=== PATIENT | female | born 1950 | race Caucasian/White ===

== ENCOUNTER 2018-11-05 09:55 | Day surgery (SDC) | payer OTHER ==
[2018-10-31 12:58] VITALS: BMI 27.1
[2018-11-05] MEDS ORDERED: GABAPENTIN 300 MG CAPSULE (FP) PO STA (10:16)
[2018-11-05] MEDS ORDERED: oxyCODONE HCL 10 MG SUSTAINED ACTING TABLET PO STA (10:16)
[2018-11-05] MEDS ORDERED: LIDOCAINE 1%/EPI 1:100000 (20 ML MULTI DOSE VIAL) ONE (11:14)
[2018-11-05] MEDS ORDERED: methylPREDNISolone ACET (DEPO) 40 MG/1 ML VIAL ONE (11:14)
[2018-11-05] MEDS ORDERED: THROMBIN (RECOMBINANT) 5,000 UNIT VIAL TP ONE (11:15)
[2018-11-05] MEDS ORDERED: MIDAZOLAM HCL 2 MG/2 ML SINGLE DOSE VIAL ONE (11:21)
[2018-11-05] MEDS ORDERED: PROPOFOL 20 ML ONE ×3 (11:50)
[2018-11-05] MEDS ORDERED: fentaNYL CITRATE 250 MCG/5 ML VIAL ONE (11:50)
--- NOTE | 2018-11-05 11:55 | HP ---
History & Physical Update - History History: No Change - Physical Physical: No Change - Assessment Assessment: No Change - Plan Plan: No Change (Intial H&P is located in patient's paper chart. No new complaints or medictaions. Here today for elective L4/S1 laminectomy (c/o chronic LBP w/ RLE radiculopathy))
[2018-11-05] MEDS ORDERED: BUPIVACAINE HCL/PF 0.5% (5MG/ML) 10 ML VIAL ONE (11:57)
[2018-11-05] MEDS ORDERED: LIDOCAINE 1%/EPI 1:100000 (20 ML MULTI DOSE VIAL) INF ONE (12:20)
[2018-11-05] MEDS ORDERED: ceFAZolin SODIUM 1 GM VIAL ONE (12:24)
[2018-11-05] MEDS ORDERED: ePHEDrine SULFATE 50 MG/1 ML AMPULE ONE (12:40)
[2018-11-05] MEDS ORDERED: PHENYLEPHRINE HCL 10 MG/1 ML SINGLE DOSE VIAL ONE (12:40)
[2018-11-05] MEDS ORDERED: SODIUM CHLORIDE 0.9% P/F 10 ML VIAL IJ ONE (12:41)
[2018-11-05] MEDS ORDERED: methylPREDNISolone ACET (DEPO) 40 MG/1 ML VIAL IM ONE (13:10)
--- NOTE | 2018-11-05 13:38 | OP ---
Operative Note - Note: Operative Date: 11/05/18 Pre-Operative Diagnosis: Chronic LBP with RLE radiculopathy Operation: L4-S1 laminectomy (bilateral) Post-Operative Diagnosis: Same as Pre-op Surgeon: Carson Lion Mechanical Ordnance Assembler: Epifanio Herr Anesthesiologist/NATIONAL SALES TRAINER: Gary Murry Anesthesia: Spinal Specimens Removed: None. Estimated Blood Loss (mls): 20 Fluid Volume Replaced (mls): 900 Operative Report Dictated: Yes
--- NOTE | 2018-11-05 13:39 | SURG ---
Surgery Row Boss Hoeing Note Row Boss Hoeing: Epifanio Herr PA-C Date of Service: 11/05/18 Diagnosis: Chronic LBP w/ RLE radiculopathy Procedure: L4-S1 Laminectomy (bilateral) I was present for the entirety of the operative procedure. For further detail, please refer to operative report. Visit type - Case Type Case Type: Scheduled - New patient This patient is new to me today: Yes Date on this admission: 11/05/18
[2018-11-05] MEDS ORDERED: ONDANSETRON 4 MG/2 ML VIAL ONE (14:01)
[2018-11-05] MEDS ORDERED: oxyCODONE HCL 5 MG TABLET PO PRN ×2 (14:18)
[2018-11-05] MEDS ORDERED: ONDANSETRON 4 MG/2 ML VIAL IVPUSH PRN (14:18)
[2018-11-05] MEDS ORDERED: PROMETHAZINE HCL 25 MG/1 ML VIAL IVPUSH PRN (14:18)
[2018-11-05 15:12] VITALS: TEMP 98.2
[2018-11-05] MEDS ORDERED: oxyCODONE HCL 5 MG TABLET ONE (16:05)
--- NOTE | 2018-11-05 16:49 | OP ---
DATE OF OPERATION: 11/05/2018 PREOPERATIVE DIAGNOSIS: Spinal stenosis L4-L5, L5-S1. POSTOPERATIVE DIAGNOSIS: Spinal stenosis L4-L5, L5-S1. PROCEDURE PERFORMED: Laminectomy L4-L5, L5-S1. SURGEON: Carson Lion MD BACKUP SAWYER: CHIQUITA Camargo ESTIMATED BLOOD LOSS: 50 mL. INTRAVENOUS FLUIDS: Per anesthesia. ANESTHESIA: Spinal/TLIP block. COMPLICATIONS: There were none. DISPOSITION: Patient was brought to the PACU in stable condition. INDICATIONS FOR SURGERY: Patient is a 68-year-old female who has been suffering from pain from her back down her legs. X-rays and MRI were completed, which noted that she had spinal stenosis from L4 down to S1. She had gone through an exhaustive course of treatment for this, which included medications, physical therapy as well as injections. Unfortunately, pain continued to persist despite all this. At this point, risks, benefits, and alternatives were discussed, and the patient consented to surgery. DESCRIPTION OF PROCEDURE: Patient was brought to the operating room by anesthesia staff. After appropriate patient identification was performed, spinal anesthesia was given. TLIP block was also given. Patient was able to position herself prone onto the OR table with all areas and bony prominences well padded at this time. Two needles were placed into her back to hoang off the L4-S1 segments. X-ray was taken to confirm this was correct. Needle was removed, and 10 mL of lidocaine with epinephrine was injected into her back at this time. Her back was prepped and draped in a sterile manner. At this point, a time-out was completed. An incision was made from the top of L4 down to the bottom of S1. Dissection was carried down to the fascia. Fascia was split open at this time, and appropriate retractor was then placed in. A spinal needle was placed onto the L4 lamina to hoang off the L4-L5 level. X-ray was taken to confirm this was correct. Needle was removed, and the interspinous ligament at L4-L5, L5-S1 was removed. The spinous process of L5 was removed. A complete decompression was performed by removing both the lamina and the flavum from L4 down to S1 such that by the end of the procedure the L5 and S1 nerve roots appeared to be well decompressed. All bleeding was well controlled at this time. Steroids was placed over the nerve root. FloSeal was placed over that. The fascia was closed with a No. 1 Vicryl suture. The subcutaneous tissue was closed with 2-0 Vicryl suture. Skin was closed with 3-0 Monocryl suture. Dermabond was applied. Steri-Strips were applied. A sterile dressing was applied. Patient was placed supine on the OR bed and brought to the PACU in stable condition. Eula PONCE/[id number] MTDD
[2018-11-05 17:16] VITALS: BP 132/71; PULSE 71
== END 2018-11-05 17:18 | disposition home or self-care (01) ==
LOC: FASU 09:55
PROVIDERS: ATTEND Orthopaedic Surgery Orthopaedic Surgery of the Spine
PROC: 01NB0ZZ Release Lumbar Nerve, Open Approach (ICD-10-PCS; principal; 2018-11-05 12:29)
DX: M48.061 Spinal stenosis, lumbar region without neurogenic claudication (principal); M48.07 Spinal stenosis, lumbosacral region
CPT/HCPCS: 72100-TC-FY; 76000-TC-FY; 94760

== ENCOUNTER 2018-11-20 14:08 | Inpatient (IN) | payer OTHER ==
--- NOTE | 2018-11-20 14:45 | PDOC ---
History of Present Illness - General History Source: Patient Exam Limitations: No Limitations - History of Present Illness Initial Comments: 11/20/18 14:45 HPI: 68yo F PMH spinal stenosis s/p laminectomy November 05, patient was doing well until 4 days ago when her pain worsened and she began to have difficulty ambulating due to "legs feeling like jelly" and pain. She endorses inability to ambulate at the current time and complains of severe left buttock pain. Denies fevers, chills, CP, SOB, leg pain, numbness, tingling, urinary or fecal incontinence. All: PCN and sulfa Meds: per chart PMH: per cart PSH: per chart <Dereck Silvestre - Last Filed: 11/20/18 18:48> <Anna Avendaño - Last Filed: 11/20/18 22:25> - General Chief Complaint: Back Pain Stated Complaint: LOWER BACK PAIN Time Seen by Provider: 11/20/18 14:45 Past History - Travel Traveled outside of the country in the last 30 days: No Close contact w/someone who was outside of country & ill: No - Past Medical History Anemia: No Asthma: No Cancer: Yes (LEFT BREAST DX 2017) Cardiac Disorders: No CVA: No COPD: No CHF: No Dementia: No Diabetes: No GI Disorders: Yes (HX GASTRIC ULCER) Disorders: No HTN: Yes Hypercholesterolemia: No Liver Disease: Yes (FATTY LIVER- FUNCTION NORMAL) Seizures: No Thyroid Disease: No - Surgical History Abdominal Surgery: Yes (GASTRIC ULCER REPAIR- 2014) Appendectomy: No Cardiac Surgery: No Cholecystectomy: No Lung Surgery: No Neurologic Surgery: No Orthopedic Surgery: No - Psycho Social/Smoking Cessation Hx Smoking History: Never smoked Have you smoked in the past 12 months: No Hx Alcohol Use: No Drug/Substance Use Hx: No Substance Use Type: None Hx Substance Use Treatment: No <Dereck Silvestre - Last Filed: 11/20/18 18:48> <Anna Avendaño - Last Filed: 11/20/18 22:25> - Past Medical History Allergies/Adverse Reactions: Allergies Allergy/AdvReac Type Severity Reaction Status Date / Time amoxicillin Allergy Intermediate Rash Verified 11/20/18 15:01 Penicillins Allergy Intermediate Rash Verified 11/20/18 15:01 Sulfa (Sulfonamide Allergy Intermediate Rash Verified 11/20/18 15:01 Antibiotics) Home Medications: Ambulatory Orders Anastrozole [Arimidex -] 1 mg PO HS 10/31/18 Gabapentin 300 mg PO TID 10/31/18 Losartan Potassium 100 mg PO HS 10/31/18 Metoprolol Succinate [Toprol Xl] 25 mg PO HS 10/31/18 Triamterene/Hydrochlorothiazid [Triamterene-Hctz 37.5-25 mg Cp] 1 tab PO HS Review of Systems - Review of Systems Able to Perform ROS?: Yes Is the patient limited Tongan proficient: Yes Constitutional: No: Chills, Diaphoresis, Fever, Malaise, Night Sweats, Weakness , Unexplained wgt Loss HEENTM: No: Eye Pain, Double Vision, Nose Congestion, Throat Swelling Respiratory: No: Cough, Orthopnea, Shortness of Breath, Stridor, Wheezing Cardiac (ROS): No: Chest Pain, Edema, Irregular Heart Rate, Palpitations, Syncope, Chest Tightness ABD/GI: No: Constipated, Diarrhea, Nausea, Vomiting, Indigestion : No: Burning, Dysuria, Discharge, Hematuria, Incontinence, Pain Musculoskeletal: No: Back Pain, Gout, Muscle Pain, Muscle Weakness Integumentary: No: Erythema, Pruritus, Rash, Sweating Neurological: No: Headache, Numbness, Seizure, Tingling, Weakness Psychiatric: No: Emotional Problems, Mood Swings, Change in Appetite Hematologic/Lymphatic: No: Anemia, Easy Bleeding, Easy Bruising All Other Systems: Reviewed and Negative <Dereck Silvestre - Last Filed: 11/20/18 18:48> *Physical Exam - Physical Exam Comments: 11/20/18 15:23 Vitals reviewed, AFVSS Obese woman, laying in bed, NAD, uncomfortable NCAT, MMM, EOMI, normal morphologies RRR, nl s1/s2, no murmurs appreciated CTABL, normal WOB, no wheezes / rales / rhonchi Abd obese, soft, nontender Back with midline dressing and sutures from surgery, no surrounding erythema, swelling, warmth, crepitus, left glute tender to palpation, normal sensation in saddle region, normal sensation to light touch in bilateral LE, 4+ strength plantar flexion, unable to lift legs off bed 2/2 pain - moves well in plan of bed Alert and oriented <Dereck Silvestre - Last Filed: 11/20/18 18:48> - Vital Signs Last Vital Signs Temp Pulse Resp BP Pulse Ox 97.9 F 93 H 18 157/78 96 11/20/18 18:00 11/20/18 18:00 11/20/18 14:47 11/20/18 18:00 11/20/18 18:00 <Anna Avendaño - Last Filed: 11/20/18 22:25> ED Treatment Course - Medications Given in the ED: ED Medications Discontinued Medications Generic Name Dose Route Start Last Admin Trade Name Morgan PRN Reason Stop Dose Admin Diazepam 5 mg 11/20/18 17:25 11/20/18 17:37 Valium - PO 11/20/18 17:26 5 mg ONCE ONE Administration Ketorolac Tromethamine 30 mg 11/20/18 17:24 11/20/18 17:37 Toradol Injection - IM 11/20/18 17:25 30 mg ONCE ONE Administration <Anna Avendaño - Last Filed: 11/20/18 22:25> Medical Decision Making - Medical Decision Making 11/20/18 15:32 68yo F spinal stenosis s/p laminectomy November 05, patient was doing well until 4 days ago when her pain worsened and she began to have difficulty ambulating due to "legs feeling like jelly" and pain. Concerning for ?cord compression. Pt reports that surgeon sent her in for MRI. -MRI Lumbar spine 11/20/18 17:16 -Spoke with Dr. Lion, he agreed with MRI, suggested pain control if negative -Plan for f/u MRI read, then Toraol / Valium for pain and attempt ambulation -If patient unable to ambulate with adequate pain control, will admit 11/20/18 18:49 -Radiology preliminarily read of moderate fluid collection at L5/S1 measuring 3.5 x 1.1 x 0.8 -Awaiting official read, call placed to patient's orthopaedic surgeon for disposition <Dereck Silvestre - Last Filed: 11/20/18 18:48> Discharge <Dereck Silvestre - Last Filed: 11/20/18 18:48> - Discharge Information Problems reviewed: Yes - Admission Yes <Avendaño,Anna - Last Filed: 11/20/18 22:25> - Discharge Information Clinical Impression/Diagnosis: Back pain, S/P laminectomy with spinal fusion Condition: Guarded
--- NOTE | 2018-11-20 15:03 | PDOC ---
Attending Attestation - Resident Resident Name: KonradDereck - ED Attending Attestation I have performed the following: I have examined & evaluated the patient, The case was reviewed & discussed with the resident, I agree w/resident's findings & plan, Exceptions are as noted - HPI HPI: 11/20/18 15:06 Status post L4-L5 laminectomy 2 weeks ago. For the past 4 days progressive weakness of both lower extremities, now unable to ambulate. Sent in by surgeon requesting MRI. - Physicial Exam PE: 11/20/18 18:51 Patient appears to have weakness of both lower extremities, although sensation and movement are present. She denies bowel or bladder incontinence or retention , there is no saddle anesthesia. - Medical Decision Making 11/20/18 18:52 Assessment: MRI shows some fluid collection at the L5-S1 region as described by the radiologist, moderate, 3.5 x 1.1 x 0.8. Plan: Dr. Gibbs was paged to discuss the MRI results and further medical/ surgical management. Awaiting return call. Signed out to Dr. Sam 7 PM pending return call by surgeon.
[2018-11-20] MEDS ORDERED: KETOROLAC TROMETHAMINE 30 MG/1 ML VIAL IM ONE (17:24)
[2018-11-20] MEDS ORDERED: diazePAM 5 MG TABLET PO ONE (17:25)
[2018-11-20] MEDS ORDERED: KETOROLAC TROMETHAMINE 30 MG/1 ML VIAL ONE (17:29)
[2018-11-20] MEDS ORDERED: diazePAM 5 MG TABLET ONE (17:29)
[2018-11-20] MEDS ORDERED: DEXTROSE 5%-0.45% SALINE 1,000 ML IV SCH (21:00)
[2018-11-20] MEDS: ACETAMINOPHEN 1000 MG/100 ML VIAL (NON FORMULARY) IVPB PRN (21:26)
[2018-11-20] MEDS: ANASTROZOLE 1 MG TABLET PO SCH (21:28)
[2018-11-20] MEDS: metoPROLOL SUCCINATE 25 MG TAB.SR.24H (FP) PO SCH (21:28)
[2018-11-20] MEDS: GABAPENTIN 300 MG CAPSULE (FP) PO SCH (21:28)
[2018-11-20] MEDS: LOSARTAN POTASSIUM 50 MG TABLET (FP) PO SCH (21:30)
[2018-11-20] MEDS ORDERED: PATIENT'S OWN MEDICATION (NON-FORMULARY) (Losartan Potassium [Losartan Potassium] 100 MG) PO SCH (22:00)
[2018-11-20 22:46] LABS: HEMATOCRIT 29.5 % (32.4-45.2); MCH 33.2 pg (25.7-33.7); MCHC 33.9 g/dl (32.0-36.0); MEAN PLT VOLUME 6.9 fl (7.5-11.1); PLATELET COUNT 56 K/MM3 (134-434); RBC 3.01 M/mm3 (3.60-5.2); RDW 13.9 % (11.6-15.6); WHITE BLOOD COUNT 2.1 K/mm3 (4.0-10.8)
[2018-11-20 22:57] LABS: ALBUMIN 2.8 g/dl (3.4-5.0); BILIRUBIN,TOTAL 1.7 mg/dl (0.2-1); CALCIUM 8.5 mg/dl (8.5-10); CREATININE 0.7 mg/dl (0.55-1.3); MAGNESIUM 1.6 mg/dL (1.8-2.4); POTASSIUM 3.4 mmol/L (3.5-5.1); TOT PROT 5.2 g/dl (6.4-8.2)
[2018-11-20 23:06] VITALS: BMI 28.8
[2018-11-20 23:19] LABS: PLATELET ESTIMATE DECREASED
[2018-11-21] MEDS ORDERED: morphine CARPU-JECT 2 MG/1 ML DISP.SYRIN IM ONE (01:27)
[2018-11-21] MEDS ORDERED: MAGNESIUM SULF 50% (8.12 MEQ/2 ML-1 GM VIAL) IVPB ONE (02:17)
[2018-11-21] MEDS ORDERED: KCL 10 MEQ IVPB 10 MEQ/100 ML INFUS.BAG IVPB SCH (02:30)
[2018-11-21] MEDS: GABAPENTIN 300 MG CAPSULE (FP) PO SCH ×3 (06:00→21:24)
[2018-11-21] MEDS: TRIAMTERENE AND HCTZ - 37.5 MG/25 MG CAPSULE PO SCH ×2 (06:01→11:50)
[2018-11-21 08:05] LABS: CALCIUM 8.3 mg/dl (8.5-10); CREATININE 0.8 mg/dl (0.55-1.3); POTASSIUM 3.3 mmol/L (3.5-5.1)
[2018-11-21 08:30] LABS: INR 1.35 (0.82-1.09)
[2018-11-21] MEDS ORDERED: oxyCODONE HCL 5 MG TABLET PO PRN ×2 (09:02→09:03)
--- NOTE | 2018-11-21 09:02 | HP ---
"CHIEF COMPLAINT: Back pain PCP: Dr. Luis Muro, [facility] HISTORY OF PRESENT ILLNESS: 68 year-old female with a PMH significant for HTN, HLD, left breast cancer s/p lumpectomy 2018 on anastrazole, chronic thrombocytopenia, gout, nephrolithiasis , h/o perforated ulcer, chronic low back pain with RLE radiculopathy s/p L4-S1 bilateral laminectomy on 11/[address] Lion. Patient has been dependent on opioids for three years, was formally dismissed, in writing, from the pain management program at [facility] in August 2018. Shortly thereafter patient's sister reports patient went into withdrawal and felt very poorly. From 09/24 to 10/29, patient received prescriptions from an oral surgery practice for 98 opioid pills. Following her surgery on 11/05 she was prescribed additional opioids, valium, and tramadol (see I STOP search below). Patient states she has ingested all of these pills, she has nothing left at home. She thinks the pills ran out about a week ago which is when she states she developed left buttock pain, bilateral leg pain, difficulty walking, and falls. She describes the pain as shooting, sharp, unrelenting. Walking makes the pain worse, nothing makes it better. Patient denies fever, sweats, chills; denies nausea, vomiting, diarrhea. She denies tremors, anxiety, agitation, diaphoresis. 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 Chronic thrombocytopenia Gout Nephrolithiasis Endometrial hyperplasia Perforated ulcer (2013, in ICU x 2 weeks in [facility]) PAST SURGICAL HISTORY: Left breast lumpectomy (2018) D&C/Hysteroscopy (2018) Social History: retired from [employer] career; single, lives with sister, no children Smoking: never Alcohol: no Drugs: no Family history: sister with breast cancer; father 93 with HTN; mother 53 complications from gallbladder surgery; family h/o diabetes Allergies amoxicillin Allergy (Intermediate, Verified 11/20/18 15:01) Rash Penicillins Allergy (Intermediate, Verified 11/20/18 15:01) Rash Sulfa (Sulfonamide Antibiotics) Allergy (Intermediate, Verified 11/20/18 15:01) Rash HOME MEDICATIONS: Home Medications Medication Instructions Recorded Anastrozole [Arimidex -] 1 mg PO HS 10/31/18 Gabapentin 300 mg PO TID 10/31/18 Losartan Potassium 100 mg PO HS 10/31/18 Metoprolol Succinate [Toprol Xl] 25 mg PO HS 10/31/18 Triamterene/Hydrochlorothiazid 1 tab PO HS 10/31/18 [Triamterene-Hctz 37.5-25 mg Cp] REVIEW OF SYSTEMS CONSTITUTIONAL: Absent: fever, chills, diaphoresis, generalized weakness, malaise, loss of appetite, weight change HEENT: Absent: rhinorrhea, nasal congestion, throat pain, throat swelling, difficulty swallowing, mouth swelling, ear pain, eye pain, visual changes CARDIOVASCULAR: Absent: chest pain, syncope, palpitations, irregular heart rate, lightheadedness , peripheral edema RESPIRATORY: Absent: cough, shortness of breath, dyspnea with exertion, orthopnea, wheezing, stridor, hemoptysis GASTROINTESTINAL: Absent: abdominal pain, abdominal distension, nausea, vomiting, diarrhea, constipation, melena, hematochezia GENITOURINARY: Absent: dysuria, frequency, urgency, hesitancy, hematuria, flank pain, genital pain MUSCULOSKELETAL: +left buttock pain, bilateral leg pain Absent: myalgia, arthralgia, joint swelling, back pain, neck pain SKIN: Absent: rash, itching, pallor HEMATOLOGIC/IMMUNOLOGIC: Absent: easy bleeding, easy bruising, lymphadenopathy, frequent infections ENDOCRINE: Absent: unexplained weight gain, unexplained weight loss, heat intolerance, cold intolerance NEUROLOGIC: +unsteady gait, falls Absent: headache, focal weakness or paresthesias, dizziness, unsteady gait, seizure, mental status changes, bladder or bowel incontinence PSYCHIATRIC: Absent: anxiety, depression, suicidal or homicidal ideation, hallucinations. PHYSICAL EXAMINATION Vital Signs - 24 hr 11/20/18 11/20/18 11/20/18 14:47 18:00 20:12 Temperature 98.3 F 97.9 F 98.7 F Pulse Rate 78 95 H Pulse Rate [ 93 H Right] Respiratory 18 18 Rate Blood Pressure 146/76 167/78 Blood Pressure 157/78 [Right] O2 Sat by Pulse 100 96 Oximetry (%) 11/20/18 11/20/18 11/21/18 20:30 22:35 02:00 Temperature 98.7 F 98.6 F 98.1 F Pulse Rate 95 H 83 80 Pulse Rate [ Right] Respiratory 18 18 18 Rate Blood Pressure 167/78 141/61 145/61 Blood Pressure [Right] O2 Sat by Pulse 96 93 L 96 Oximetry (%) 11/21/18 11/21/18 11/21/18 06:00 08:06 08:58 Temperature 97.6 F 97.8 F Pulse Rate 79 74 Pulse Rate [ Right] Respiratory 18 18 Rate Blood Pressure 147/64 139/74 Blood Pressure [Right] O2 Sat by Pulse 96 96 94 L Oximetry (%) GENERAL: Awake, alert, and fully oriented, in no acute distress. HEAD: Normal with no signs of trauma. EYES: Pupils equal, round and reactive to light, extraocular movements intact, sclera anicteric, conjunctiva clear. No lid lag. LUNGS: Breath sounds equal, clear to auscultation bilaterally. No wheezes, and no crackles. No accessory muscle use. HEART: Regular rate and rhythm, S1 and S2 ABDOMEN: Soft, nontender, not distended MUSCULOSKELETAL: 5/5 sensory and motor in b/l LE; can SLR to 20 degrees bilaterally restricted due to report of pain radiating into both hips UPPER EXTREMITIES: 2+ pulses, warm, well-perfused. No cyanosis. No clubbing. No peripheral edema. LOWER EXTREMITIES: 2+ pulses, warm, well-perfused. No calf tenderness. No peripheral edema. NEUROLOGICAL: Cranial nerves II-XII intact. Normal speech. SKIN: Warm, dry, normal turgor; surgical wound visualized: steri strips dry, suture line below appears intact, no bleeding, no exudate; mild ecchymosis extending bilaterally, no fluctuance, not tender Laboratory Results - last 24 hr 11/20/18 11/20/18 11/20/18 22:00 22:00 22:00 WBC 2.1 L RBC 3.01 L Hgb 10.0 L Hct 29.5 L MCV 98.0 H MCH 33.2 MCHC 33.9 RDW 13.9 Plt Count 56 L MPV 6.9 L Absolute Neuts (auto) 1.4 Neutrophils % No Result Required. Neutrophils % (Manual) 70.0 Lymphocytes % No Result Required. Lymphocytes % (Manual) 20.0 Monocytes % (Manual) 6 Eosinophils % (Manual) 4.0 Platelet Estimate Decreased PT with INR INR Sodium 140 Potassium 3.4 L Chloride 111 H Carbon Dioxide 27 Anion Gap 2 L BUN 12.0 Creatinine 0.7 Est GFR (CKD-EPI)AfAm 104.64 Est GFR (CKD-EPI)NonAf 90.29 Random Glucose 83 Calcium 8.5 Magnesium 1.6 L Total Bilirubin 1.7 H AST 34 ALT 15 Alkaline Phosphatase 101 Total Protein 5.2 L Albumin 2.8 L Blood Type O NEGATIVE Antibody Screen Negative 11/21/18 11/21/18 07:05 08:05 WBC RBC Hgb Hct MCV MCH MCHC RDW Plt Count MPV Absolute Neuts (auto) Neutrophils % Neutrophils % (Manual) Lymphocytes % Lymphocytes % (Manual) Monocytes % (Manual) Eosinophils % (Manual) Platelet Estimate PT with INR 15.0 H INR 1.35 H Sodium 139 Potassium 3.3 L Chloride 110 H Carbon Dioxide 25 Anion Gap 4 L BUN 14.0 Creatinine 0.8 Est GFR (CKD-EPI)AfAm 89.04 Est GFR (CKD-EPI)NonAf 76.83 Random Glucose 91 Calcium 8.3 L Magnesium 2.0 Total Bilirubin AST ALT Alkaline Phosphatase Total Protein Albumin Blood Type Antibody Screen ASSESSMENT/PLAN 68 year-old female with a PMH significant for HTN, HLD, left breast cancer s/p lumpectomy 2018 on anastrazole, chronic thrombocytopenia, gout, nephrolithiasis , h/o perforated ulcer, chronic low back pain with RLE radiculopathy s/p L4-S1 bilateral laminectomy on 11/[address] Lion. Patient admitted for bilateral leg pain and falls. s/p L4-S1 bilateral laminectomy on 11/05/18 --11/20 MRI LS: 3 x 1.3 x 1cm ellipitical-shaped fluid structure within the central canal posteriorly at L5 and S1 levels with resultant ventral displacement and extrinisic indentation upon the traversing thecal sac --discussed with surgical team, considering intervention v. conservative management --pain initially treated with Tylenol, but concern for liver dysfunction; cannot give NSAIDS due to thrombocytopenia; cannot give opioids due to dependency; offered to start patient on methadone tapering protocol but she refused; consult placed for Dr. Mckay, detox/behavioral health --continue gabapentin, lidocaine patch Elevated bilirubin Dilated common bile duct Splenomegaly --patient has been told she has cirrhosis although not reflected in [facility] pre-op records (3 different doctors) as a current diagnosis --11/20 MRI shows dilated CBD 8mm although patient denies symptoms of gallbladder disease --LFTs, ammonia, acetaminophen levels now --US abdomen Chronic thrombocytopenia Leukopenia --has been under care of deputy sheriff chief Dr. Oreilly, pre-op platelets 72k on ; now 56k; no signs of bleeding --discussed with surgical team Hypertension --continue metoprolol, losartan --hold HCTZ/triamterine due to hypokalemia Hyperlipidemia --not on statin therapy Hypokalemia --replete Breast cancer --continue anastrazole Opioid dependency --consult pending --offered to start patient on methadone protocol, she refused FEN Fluids: NS@75mL/hr Electrolytes: replete as indicated Nutrition: regular diet DVT prophylaxis: SCDs, oob, ambulation Physical therapy Dispo: continues to require inpatient care. Full code. I-STOP Search Terms: Ruby Arcos, 1950 Search Date: 11/21/2018 02:56:52 PM The Drug Utilization Report below displays all of the controlled substance prescriptions, if any, that your patient has filled in the last twelve months. The information displayed on this report is compiled from pharmacy submissions to the Department, and accurately reflects the information as submitted by the pharmacies. This report was requested by: Valarie Ramírez | Reference #: [id number] Others' Prescriptions Patient Name: Ruby Arcos Date: 1950 Address: [address] [place] [address] Sex: Female Rx Written Rx Dispensed Drug Quantity Days Supply Prescriber Name 11/09/2018 11/11/2018 tramadol hcl 50 mg tablet 60 10 Carson Lion D, MD 11/05/2018 11/05/2018 oxycodone hcl 5 mg tablet 28 7 Epifanio Herr 11/05/2018 11/05/2018 diazepam 2 mg tablet 24 8 Epifanio Herr 10/29/2018 10/29/2018 oxycodone-acetaminophen 5-325 mg tablet 8 2 Kendell LoweMD MIKO) 10/22/2018 10/23/2018 hydrocodone-acetaminophen 5-325 mg tablet 20 5 Kendell Lowe (MD MIKO) 10/18/2018 10/18/2018 oxycodone-acetaminophen 2.5-325 mg tablet 20 5 Kendell Lowe (MD MIKO) 10/12/2018 10/13/2018 acetaminophen-cod #3 tablet 12 3 Kendell Lowe (MD MIKO ) 10/11/2018 10/11/2018 acetaminophen-cod #3 tablet 8 2 Kendell Lowe (MD MIKO) 10/05/2018 10/05/2018 acetaminophen-cod #3 tablet 12 2 Kendell Lowe (MD MIKO ) 09/24/2018 09/24/2018 hydrocodone-acetaminophen 7.5-325 mg tablet 18 3 Gurpreet Kirk 08/01/2018 08/03/2018 oxycodone hcl 15 mg tablet 90 30 Concan, Jennifer, N 07/06/2018 07/06/2018 oxycodone hcl 15 mg tablet 90 30 Star, Jennifer, N 05/24/2018 06/07/2018 oxycodone hcl 15 mg tablet 90 30 Star, Jennifer, N 05/07/2018 05/09/2018 oxycodone hcl 15 mg tablet 60 30 Marilyn Lan M, MSN, GRINDING MACHINE OPERATOR PORTABLE-Bc, 03/29/2018 03/31/2018 oxycodone hcl 15 mg tablet 120 30 Marilyn Lan M, MSN, GRINDING MACHINE OPERATOR PORTABLE-Bc, Patient Name: Ruby Arcos Date: 1950 Address: [address] [place] [address] Sex: Female Rx Written Rx Dispensed Drug Quantity Days Supply Prescriber Name 02/27/2018 03/06/2018 oxycodone hcl 15 mg tablet 120 30 Marilyn Lan M, MSN, GRINDING MACHINE OPERATOR [employer]ABLE-[employer]c, 01/26/2018 02/24/2018 oxycodone hcl 15 mg tablet 120 30 Marilyn Lan M, MSN, GRINDING MACHINE OPERATOR PORTABLE-[employer]c, 01/05/2018 01/05/2018 oxycodone hcl 15 mg tablet 120 30 Concan, Jennifer, N 12/07/2017 12/07/2017 oxycodone hcl 15 mg tablet 90 30 Star, Jennifer, N Visit type - Emergency Visit Emergency Visit: Yes ED Registration Date: 11/20/18 Care time: The patient presented to the Emergency Department on the above date and was hospitalized for further evaluation of their emergent condition. - New Patient This patient is new to me today: Yes Date on this admission: 11/21/18 - Critical Care Critical Care patient: No"
[2018-11-21] MEDS ORDERED: PT OWN MED DRAWER 7, Y5N ONE (09:23)
[2018-11-21] MEDS: ACETAMINOPHEN 1000 MG/100 ML VIAL (NON FORMULARY) IVPB PRN (09:30)
[2018-11-21] MEDS ORDERED: TRIAMTERENE AND HCTZ - 37.5 MG/25 MG CAPSULE PO SCH (09:30)
--- NOTE | 2018-11-21 10:56 | EKG ---
Test Reason : Blood Pressure : / mmHG Vent. Rate : 094 BPM Atrial Rate : 094 BPM P-R Int : 164 ms QRS Dur : 080 ms QT Int : 372 ms P-R-T Axes : 049 049 039 degrees QTc Int : 465 ms NORMAL SINUS RHYTHM POSSIBLE LEFT ATRIAL ENLARGEMENT BORDERLINE ECG NO PREVIOUS ECGS AVAILABLE Confirmed by DARWIN SMITH, TRINITY ([id number]) on 11/21/2018 10:55:57 AM Referred By: DR CARPIO Confirmed By:TRINITY GRANADOS MD
--- NOTE | 2018-11-21 16:16 | CONSULT ---
- Consultation REQUESTING PROVIDER: CONSULT REQUEST: We have been asked to surgically evaluate this patient for back pain/weakness. PCP:Valarie Ramírez HISTORY OF PRESENT ILLNESS: The patient is a 68 yo female who is s/p laminectomy L4-S1 on 11/05/2018. She went home after her surgery and was recovering ok for approximately 1 week then she developed severe back pain. She was unable to see Dr. Lion in his office for a follow-up because of the pain. Her pain is mostly in her back/buttock region. She denies any numbness or tingling to her LE. She does feel weak but mostly from the pain. No headaches, fevers or chills. No difficulty with urination/incontinence. No difficulties with bowel incontinence and had a BM yesterday. No nausea or emesis. PMHx: HTN, breast cancer, thrombocytopenis PSHx: exp lap for perforated stomach ulcer. s/p lami L4-S1 on 11/05 Home Medications Medication Instructions Recorded Anastrozole [Arimidex -] 1 mg PO HS 10/31/18 Gabapentin 300 mg PO TID 10/31/18 Losartan Potassium 100 mg PO HS 10/31/18 Metoprolol Succinate [Toprol Xl] 25 mg PO HS 10/31/18 Triamterene/Hydrochlorothiazid 1 tab PO HS 10/31/18 [Triamterene-Hctz 37.5-25 mg Cp] Allergies Allergy/AdvReac Type Severity Reaction Status Date / Time amoxicillin Allergy Intermediate Rash Verified 11/20/18 15:01 Penicillins Allergy Intermediate Rash Verified 11/20/18 15:01 Sulfa (Sulfonamide Allergy Intermediate Rash Verified 11/20/18 15:01 Antibiotics) REVIEW OF SYSTEMS: CONSTITUTIONAL: Absent: fever, chills CARDIOVASCULAR: Absent: chest pain, syncope, palpitations RESPIRATORY: Absent: cough, shortness of breath GASTROINTESTINAL: Absent: abdominal pain, abdominal distension, nausea, vomiting GENITOURINARY: Absent: dysuria, hematuria, incontinence HEMATOLOGIC/IMMUNOLOGIC: Absent: no easy bleeding, easy bruising NEUROLOGIC: Absent: headache, paresthesias, absent bowel or bladder incontinence Present: unsteady gait, weakness to LE PHYSICAL EXAM: GENERAL: Awake, alert, in no acute distress. LUNGS: Clear to auscultation bilat anteriorly. HEART: Regular rate and rhythm. No murmurs ABDOMEN: Soft, nontender, not distended, no guarding, no rebound, no masses. Rectum: good rectal tone, small amount hard stool in rectum. no masses. Back: incision c/d/i. No drainage noted or erythema. Mild ecchymosis noted near inferior/lateral aspect. LOWER EXTREMITIES: 2+ pulses, warm, well-perfused. No calf tenderness. No peripheral edema. NEUROLOGICAL: Normal speech, gait not observed. 5/5 dorsi/plantar flexion/EHL b/ l. 4/5 RLE quad strength/straight leg rasie. LLE 3/5 quad strength/ straight leg raise. PSYCH: Cooperative. Good eye contact. Appropriate mood flat. Vital Signs Temperature 97.7 F 11/21/18 14:00 Pulse Rate 73 11/21/18 14:00 Respiratory Rate 18 11/21/18 14:00 Blood Pressure 153/66 11/21/18 14:00 O2 Sat by Pulse Oximetry (%) 98 11/21/18 14:00 Lab Results WBC 2.1 K/mm3 (4.0-10.8) L 11/20/18 22:00 RBC 3.01 M/mm3 (3.60-5.2) L 11/20/18 22:00 Hgb 10.0 GM/dl (10.7-15.3) L 11/20/18 22:00 Hct 29.5 % (32.4-45.2) L 11/20/18 22:00 MCV 98.0 fl (80-96) H 11/20/18 22:00 MCHC 33.9 g/dl (32.0-36.0) 11/20/18 22:00 RDW 13.9 % (11.6-15.6) 11/20/18 22:00 Plt Count 56 K/MM3 (134-434) L 11/20/18 22:00 Sodium 139 mmol/L (136-145) 11/21/18 07:05 Potassium 3.3 mmol/L (3.5-5.1) L 11/21/18 07:05 Chloride 110 mmol/L (98-107) H 11/21/18 07:05 Carbon Dioxide 25 mmol/L (21-32) 11/21/18 07:05 Anion Gap 4 MMOL/L (8-16) L 10/09/19 07:05 BUN 14.0 mg/dl (7-18) 11/21/18 07:05 Creatinine 0.8 mg/dl (0.55-1.3) 11/21/18 07:05 Random Glucose 91 mg/dl (74-106) 11/21/18 07:05 Calcium 8.3 mg/dl (8.5-10) L 11/21/18 07:05 Blood Type O NEGATIVE 11/21/18 08:05 Antibody Screen Negative 11/21/18 08:05 INR 1.35 (0.82-1.09) H 11/21/18 08:05 report from pre-admission testing 3bc 3.2 plts 72 MRI: 3 x1 x1 cm with fluid collection in central cavan posteriorly L5-S1. A/P: 68 yo female s/p Laminecotmy of L5-S1 with pain and small collection most likely hematoma. Pt with known thrombocytopenia. D/w Dr. Lion and will continue to monitor, currently pt with no neurological symptoms. Her weakness appears to be related to her pain issues. Hold on all motrin/toradol medications Hold tylenol and add lidocaine patch. Hold on narcotics, she has a history of opoid abuse. Gabapentin for pain. Case D/w Dr. Lion, will monitor and treat for pain, physical therapy treatment. At this time no acute need for surgical intervention.
[2018-11-21] MEDS ORDERED: POTASSIUM CHLORIDE TABS 20 MEQ TABLET.ER (FP) PO ONE (16:27)
[2018-11-21] MEDS ORDERED: SODIUM CHLORIDE 1,000 ML IV SCH (16:30)
[2018-11-21] MEDS: LIDOCAINE 5% TOPICAL PATCH TP SCH (17:31)
[2018-11-21 17:45] LABS: ALBUMIN 3.1 g/dl (3.4-5.0); BILIRUBIN,DIRECT 0.5 mg/dL (0.0-0.2); BILIRUBIN,TOTAL 2.1 mg/dl (0.2-1); TOT PROT 5.7 g/dl (6.4-8.2)
[2018-11-21] MEDS: LOSARTAN POTASSIUM 50 MG TABLET (FP) PO SCH (21:24)
[2018-11-21] MEDS: metoPROLOL SUCCINATE 25 MG TAB.SR.24H (FP) PO SCH (21:25)
[2018-11-21] MEDS: ANASTROZOLE 1 MG TABLET PO SCH (21:25)
[2018-11-21] MEDS: LIDOCAINE PATCH REMOVAL MC SCH (21:25)
[2018-11-21] MEDS: MUPIROCIN CA 2% TOPICAL CREAM 15 GM TUBE TP SCH (21:25)
[2018-11-22] MEDS: GABAPENTIN 300 MG CAPSULE (FP) PO SCH ×3 (06:38→21:40)
[2018-11-22 08:02] LABS: BASO % 0.2 % (0-2.0); EOS % 2.3 % (0-4.5); HEMATOCRIT 29.4 % (32.4-45.2); HEMOGLOBIN 9.9 GM/dl (10.7-15.3); LYMPH % 15.9 % (8-40); MCH 33.1 pg (25.7-33.7); MCHC 33.6 g/dl (32.0-36.0); MEAN CELL VOLUME 98.5 fl (80-96); MEAN PLT VOLUME 7.4 fl (7.5-11.1); MONO % 10.5 % (3.8-10.2); NEUT % 71.1 % (42.8-82.8); PLATELET COUNT 60 K/MM3 (134-434); RBC 2.98 M/mm3 (3.60-5.2); WHITE BLOOD COUNT 2.8 K/mm3 (4.0-10.8)
[2018-11-22 08:42] LABS: ALBUMIN 2.7 g/dl (3.4-5.0); BILIRUBIN,DIRECT 0.5 mg/dL (0.0-0.2); BILIRUBIN,TOTAL 1.8 mg/dl (0.2-1); CALCIUM 8.6 mg/dl (8.5-10); CREATININE 0.8 mg/dl (0.55-1.3); MAGNESIUM 1.6 mg/dL (1.8-2.4); POTASSIUM 3.8 mmol/L (3.5-5.1); TOT PROT 5.1 g/dl (6.4-8.2)
[2018-11-22] MEDS ORDERED: MAGNESIUM SULF 50% (8.12 MEQ/2 ML-1 GM VIAL) IVPB ONE (09:21)
[2018-11-22] MEDS ORDERED: MAGNESIUM SULFATE IN WATER 2 GM/50 ML IVPB IVPB ONE (09:45)
[2018-11-22] MEDS: MUPIROCIN CA 2% TOPICAL CREAM 15 GM TUBE TP SCH ×2 (10:30→21:39)
[2018-11-22] MEDS: LIDOCAINE 5% TOPICAL PATCH TP SCH (10:46)
--- NOTE | 2018-11-22 11:46 | PN ---
Progress Note (short form) - Note Progress Note: Patient well known to me On Monday 11/20 patient called stated that she was in pain and could not get out of bed. Patient was advised to come to the ER In the ER MRI was taken which noted a seroma Neurologically patient is intact Patient with known dependency issues Pain management is complicated by her cirrhosis and dependency issues Will attempt safe pain management as well as rehab placement
--- NOTE | 2018-11-22 11:59 | PN ---
[facility] Progress Note (SOAP) Subjective: 68 year-old female referred for chronic pain , pt states has had back pain x many years , was in pain management program w/ rx for Oxycodone which pt states did not help , stopped taking meds , then had dental procedure and had rx for meds , s/p lumbar spine surgery 11/05/18 , d/c to home , states had several falls at home and pain in LB was excruciating , s/p fall @ home , brought by EMS as she states she could not get up from the floor. Pt c/o 11/22 pain in low back and bilateral buttocks, radiating to the outer thighs bilaterally , with difficulty standing, and walking , has been using a walker while at the hospital states has difficulty with transfers to / from bed and turning while in bed , was at MRI a few minutes ago and could not tolerate lying on the flat surface and in the cold , requested to be brought back to the room , MRI machine not working and MRI was not done today . Pt states opiates did not help w/ pain , declined Lidoderm patch and Gabapentin . PMHx : HTN, HLD, left breast cancer s/p lumpectomy 2018 currently on anastrazole, chronic thrombocytopenia, gout, nephrolithiasis, h/o perforated ulcer, chronic low back pain with RLE radiculopathy s/p L4-S1 bilateral laminectomy on 11/05 Active Medications Anastrozole (Arimidex -) [address] [facility] Last Admin: 11/21/18 21:25 Dose: 1 mg Gabapentin (Neurontin -) 300 mg PO TID [facility] Last Admin: 11/22/18 06:38 Dose: Not Given Sodium Chloride (Normal Saline -) 1,000 mls @ 75 mls/hr IV ASDIR [facility] Last Admin: 11/21/18 16:32 Dose: 75 mls/hr Lidocaine (Lidoderm Patch -) 1 patch TP DAILY [facility] Last Admin: 11/22/18 10:46 Dose: Not Given Losartan Potassium (Cozaar -) [address] [facility] Last Admin: 11/21/18 21:24 Dose: 100 mg Metoprolol Succinate (Toprol Xl -) [address] [facility] Last Admin: 11/21/18 21:25 Dose: 25 mg Miscellaneous (Lidoderm Patch Removal) 1 each MC DAILY@2200 [facility] Last Admin: 11/21/18 21:25 Dose: Not Given Mupirocin (Bactroban 2% Cream -) 1 applic TP BID [facility] Last Admin: 11/22/18 10:30 Dose: 1 applic Objective: Patient Name: Ruby Arcos Date: 1950 Address: [address] [place] [address] Sex: Female Rx Written Rx Dispensed Drug Quantity Days Supply Prescriber Name 11/09/2018 11/11/2018 tramadol hcl 50 mg tablet 60 10 Carson Lion D, MD 11/05/2018 11/05/2018 oxycodone hcl 5 mg tablet 28 7 Epifanio Herr 11/05/2018 11/05/2018 diazepam 2 mg tablet 24 8 Epifanio Herr 10/29/2018 10/29/2018 oxycodone-acetaminophen 5-325 mg tablet 8 2 Kendell Lowe (MD MIKO) 10/22/2018 10/23/2018 hydrocodone-acetaminophen 5-325 mg tablet 20 5 Kendell Lowe (MD MIKO) 10/18/2018 10/18/2018 oxycodone-acetaminophen 2.5-325 mg tablet 20 5 Kendell Lowe (MD MIKO) 10/12/2018 10/13/2018 acetaminophen-cod #3 tablet 12 3 Kendell Lowe (MD MIKO ) 10/11/2018 10/11/2018 acetaminophen-cod #3 tablet 8 2 Kendell Lowe (MD MIKO) 10/05/2018 10/05/2018 acetaminophen-cod #3 tablet 12 2 Kendell Lowe (MD MIKO ) 09/24/2018 09/24/2018 hydrocodone-acetaminophen 7.5-325 mg tablet 18 3 Gurprete Kirk 08/01/2018 08/03/2018 oxycodone hcl 15 mg tablet 90 30 Ladysmith, Jennifer, N 07/06/2018 07/06/2018 oxycodone hcl 15 mg tablet 90 30 Star, Jennifer, N 05/24/2018 06/07/2018 oxycodone hcl 15 mg tablet 90 30 Ladysmith, Jennifer, N 05/07/2018 05/09/2018 oxycodone hcl 15 mg tablet 60 30 Marilyn Lan M, MSN, [facility]-, 03/29/2018 03/31/2018 oxycodone hcl 15 mg tablet 120 30 Marilyn Lan M, MSN, [employer], Patient Name: Ruby Arcos Date: 1950 Address: [address] [place] [address] Sex: Female Rx Written Rx Dispensed Drug Quantity Days Supply Prescriber Name 02/27/2018 03/06/2018 oxycodone hcl 15 mg tablet 120 30 Marilyn Lan M, MSN, [employer], 01/26/2018 02/24/2018 oxycodone hcl 15 mg tablet 120 30 Marilyn Lan M, MSN, [employer], 01/05/2018 01/05/2018 oxycodone hcl 15 mg tablet 120 30 Star, Jennifer, N 12/07/2017 12/07/2017 oxycodone hcl 15 mg tablet 90 30 Star, Jennifer, N MRI some fluid collection at the L5-S1 region as described by the radiologist, moderate, 3.5 x 1.1 x 0.8. CBC, BMP 11/22/18 07:00 11/22/18 07:00 Vital Signs - 24 hr 11/21/18 11/21/18 11/21/18 14:00 18:00 20:14 Temperature 97.7 F 97.9 F Pulse Rate 73 80 Respiratory 18 16 Rate Blood Pressure 153/66 155/77 O2 Sat by Pulse 98 98 98 Oximetry (%) 11/21/18 11/22/18 11/22/18 22:00 01:34 06:00 Temperature 98.0 F 98.1 F 98.6 F Pulse Rate 78 82 79 Respiratory 19 18 18 Rate Blood Pressure 151/68 141/58 L 140/56 L O2 Sat by Pulse 98 94 L 94 L Oximetry (%) 11/22/18 10:00 Temperature 98.4 F Pulse Rate 84 Respiratory 20 Rate Blood Pressure 145/63 O2 Sat by Pulse Oximetry (%) Abnormal Lab Results 11/21/18 11/22/18 11/22/18 17:10 07:00 07:00 WBC 2.8 L RBC 2.98 L Hgb 9.9 L Hct 29.4 L MCV 98.5 H Plt Count 60 L MPV 7.4 L Monocytes % 10.5 H Chloride 113 H Anion Gap 5 L Magnesium 1.6 L Total Bilirubin 2.1 H 1.8 H Direct Bilirubin 0.5 H 0.5 H AST 39 H Total Protein 5.7 L 5.1 L Albumin 3.1 L 2.7 L wnwd , resting in chair comfortably , L-spine midline surgical scar c/d/i w/ steri-strips , moderate tenderness to palpation . Neuro : AAO x 3 , strength jhoan LE 5/5 sensory intact to light touch 11/22/18 15:17 Assessment: Lumbar radiculopathy s/p s/p L4-S1 bilateral laminectomy on 11/05/18 w/ new MRI findings of seroma L5-S1 . Plan: recommend Lyrica 50 mg tid , suggest physical therapy evaluation for ambulation and ability to do ADLs , consideration for home PT or snf rehabilitation .
--- NOTE | 2018-11-22 18:12 | PN ---
Physical Exam: SUBJECTIVE: Patient seen and examined sitting on edge of bed. Lenghty discussion about experience with pain management program. Had a good conversation today with Dr. Corral. Is interested in pursuing outpatient addiction treatment. OBJECTIVE: Vital Signs Period Temp Pulse Resp BP Sys/Rock Pulse Ox Last 24 Hr 98.0 F-98.7 F 76-84 16-20 140-151/56-68 94-98 GENERAL: Awake, alert, and fully oriented, in no acute distress. LUNGS: Breath sounds equal, clear to auscultation bilaterally. No wheezes, and no crackles. No accessory muscle use. HEART: Regular rate and rhythm, S1 and S2 ABDOMEN: Soft, nontender, not distended MUSCULOSKELETAL: 5/5 sensory and motor in b/l LE; can SLR to 20 degrees bilaterally restricted due to report of pain radiating into both hips UPPER EXTREMITIES: 2+ pulses, warm, well-perfused. No cyanosis. No clubbing. No peripheral edema. LOWER EXTREMITIES: 2+ pulses, warm, well-perfused. No calf tenderness. No peripheral edema. NEUROLOGICAL: Cranial nerves II-XII intact. Normal speech. SKIN: Warm, dry, normal turgor; surgical wound not visualized: steri strips Laboratory Results - last 24 hr 11/21/18 11/21/18 11/22/18 17:10 17:30 07:00 WBC 2.8 L RBC 2.98 L Hgb 9.9 L Hct 29.4 L MCV 98.5 H MCH 33.1 MCHC 33.6 RDW 14.0 Plt Count 60 L MPV 7.4 L Absolute Neuts (auto) 2.0 Neutrophils % 71.1 Lymphocytes % 15.9 Monocytes % 10.5 H Eosinophils % 2.3 Basophils % 0.2 Sodium Potassium Chloride Carbon Dioxide Anion Gap BUN Creatinine Est GFR (CKD-EPI)AfAm Est GFR (CKD-EPI)NonAf Random Glucose Calcium Magnesium Total Bilirubin Direct Bilirubin AST ALT Alkaline Phosphatase Ammonia 18.20 Total Protein Albumin Acetaminophen 6.0 11/22/18 07:00 WBC RBC Hgb Hct MCV MCH MCHC RDW Plt Count MPV Absolute Neuts (auto) Neutrophils % Lymphocytes % Monocytes % Eosinophils % Basophils % Sodium 141 Potassium 3.8 Chloride 113 H Carbon Dioxide 23 Anion Gap 5 L BUN 12.0 Creatinine 0.8 Est GFR (CKD-EPI)AfAm 89.04 Est GFR (CKD-EPI)NonAf 76.83 Random Glucose 93 Calcium 8.6 Magnesium 1.6 L Total Bilirubin 1.8 H Direct Bilirubin 0.5 H AST 34 ALT 15 Alkaline Phosphatase 99 D Ammonia Total Protein 5.1 L Albumin 2.7 L Acetaminophen Active Medications Generic Name Dose Route Start Last Admin Trade Name Freq PRN Reason Stop Dose Admin Anastrozole 1 mg 11/20/18 22:00 11/21/18 21:25 Arimidex - PO 1 mg HS CARLOTA Administration Gabapentin 300 mg 11/20/18 22:00 11/22/18 15:40 Neurontin - PO Not Given TID CARLOTA Sodium Chloride 1,000 mls @ 75 mls/hr 11/21/18 16:30 11/21/18 16:32 Normal Saline - IV 75 mls/hr ASDIR CARLOTA Administration Lidocaine 1 patch 11/21/18 17:00 11/22/18 10:46 Lidoderm Patch - TP Not Given DAILY CARLOTA Losartan Potassium 100 mg 11/20/18 22:00 11/21/18 21:24 Cozaar - PO 100 mg HS CARLOTA Administration Metoprolol Succinate 25 mg 11/20/18 22:00 11/21/18 21:25 Toprol Xl - PO 25 mg HS CARLOTA Administration Miscellaneous 1 each 11/21/18 22:00 11/21/18 21:25 Lidoderm Patch Removal MC Not Given DAILY@2200 CARLOTA Mupirocin 1 applic 11/21/18 22:00 11/22/18 10:30 Bactroban 2% Cream - TP 1 applic BID CARLOTA Administration ASSESSMENT/PLAN: 68 year-old female with a PMH significant for HTN, HLD, left breast cancer s/p lumpectomy 2018 on anastrazole, chronic thrombocytopenia, gout, nephrolithiasis , h/o perforated ulcer, chronic low back pain with RLE radiculopathy s/p L4-S1 bilateral laminectomy on 11/[address] Lion. Patient admitted for bilateral leg pain and falls. s/p L4-S1 bilateral laminectomy on 11/05/18 --11/20 MRI LS: 3 x 1.3 x 1cm ellipitical-shaped fluid structure within the central canal posteriorly at L5 and S1 levels with resultant ventral displacement and extrinisic indentation upon the traversing thecal sac --discussed with surgical team, no surgical intervention Pain management Opioid dependency --pain initially treated with Tylenol, but concern for liver dysfunction; cannot give NSAIDS due to thrombocytopenia; cannot give opioids due to dependency --seen and evaluated by Dr. Mckay detox/behavioral health, recommends starting Lyrica; discussed with patient who is uncertain, wants to think about it; also potential interaction with gabapentin --continue gabapentin for now Elevated bilirubin Dilated common bile duct Splenomegaly --patient has been told she has cirrhosis although not reflected in [facility] pre-op records (3 different doctors) as a current diagnosis --11/20 MRI shows dilated CBD 8mm although patient denies symptoms of gallbladder disease --11/21 US abd: suspected dilitation of intrahepatic duct biliary tree --11/22 MRCP: done, pending dictation Chronic thrombocytopenia Leukopenia --has been under care of adjunct lecturer Dr. Oreilly, pre-op platelets 72k on ; now 60k; no signs of bleeding Hypertension --continue metoprolol, losartan --hold HCTZ/triamterine due to hypokalemia Hyperlipidemia --not on statin therapy Hypomagnesemia --replete Breast cancer --continue anastrazole FEN Fluids: PO intake adequate Electrolytes: replete as indicated Nutrition: regular diet DVT prophylaxis: SCDs, oob, ambulation Physical therapy Dispo: continues to require inpatient care. Full code. Visit type - Emergency Visit Emergency Visit: Yes ED Registration Date: 11/20/18 Care time: The patient presented to the Emergency Department on the above date and was hospitalized for further evaluation of their emergent condition. - New Patient This patient is new to me today: No - Critical Care Critical Care patient: No
[2018-11-22] MEDS: ANASTROZOLE 1 MG TABLET PO SCH (21:39)
[2018-11-22] MEDS: LOSARTAN POTASSIUM 50 MG TABLET (FP) PO SCH (21:39)
[2018-11-22] MEDS: LIDOCAINE PATCH REMOVAL MC SCH (21:40)
[2018-11-22] MEDS: metoPROLOL SUCCINATE 25 MG TAB.SR.24H (FP) PO SCH (21:40)
[2018-11-23] MEDS: GABAPENTIN 300 MG CAPSULE (FP) PO SCH ×2 (06:25→14:56)
[2018-11-23 08:05] LABS: BASO % 0.2 % (0-2.0); EOS % 1.9 % (0-4.5); HEMATOCRIT 29.2 % (32.4-45.2); HEMOGLOBIN 9.6 GM/dl (10.7-15.3); LYMPH % 17.8 % (8-40); MCH 32.3 pg (25.7-33.7); MCHC 32.9 g/dl (32.0-36.0); MEAN CELL VOLUME 98.2 fl (80-96); MEAN PLT VOLUME 7.3 fl (7.5-11.1); NEUT % 68.1 % (42.8-82.8); PLATELET COUNT 65 K/MM3 (134-434); RBC 2.97 M/mm3 (3.60-5.2); RDW 14.7 % (11.6-15.6); WHITE BLOOD COUNT 2.7 K/mm3 (4.0-10.8)
--- NOTE | 2018-11-23 08:13 | PN ---
Physical Exam: SUBJECTIVE: Patient seen and examined OBJECTIVE: Vital Signs Period Temp Pulse Resp BP Sys/Rock Pulse Ox Last 24 Hr 97.9 F-99.1 F 76-93 16-20 140-169/57-71 94-98 GENERAL: The patient is awake, alert, and fully oriented, in no acute distress. HEAD: Normal with no signs of trauma. EYES: PERRL, extraocular movements intact, sclera anicteric, conjunctiva clear. No ptosis. ENT: Ears normal, nares patent, oropharynx clear without exudates, moist mucous membranes. NECK: Trachea midline, full range of motion, supple. LUNGS: Breath sounds equal, clear to auscultation bilaterally, no wheezes, no crackles, no accessory muscle use. HEART: Regular rate and rhythm, S1, S2 without murmur, rub or gallop. ABDOMEN: Soft, nontender, nondistended, normoactive bowel sounds, no guarding, no rebound, no hepatosplenomegaly, no masses. EXTREMITIES: 2+ pulses, warm, well-perfused, no edema. NEUROLOGICAL: Cranial nerves II through XII grossly intact. Normal speech, gait not observed. PSYCH: Normal mood, normal affect. SKIN: Warm, dry, normal turgor, no rashes or lesions noted Laboratory Results - last 24 hr 11/22/18 11/22/18 07:00 07:00 WBC 2.8 L RBC 2.98 L Hgb 9.9 L Hct 29.4 L MCV 98.5 H MCH 33.1 MCHC 33.6 RDW 14.0 Plt Count 60 L MPV 7.4 L Absolute Neuts (auto) 2.0 Neutrophils % 71.1 Lymphocytes % 15.9 Monocytes % 10.5 H Eosinophils % 2.3 Basophils % 0.2 Sodium 141 Potassium 3.8 Chloride 113 H Carbon Dioxide 23 Anion Gap 5 L BUN 12.0 Creatinine 0.8 Est GFR (CKD-EPI)AfAm 89.04 Est GFR (CKD-EPI)NonAf 76.83 Random Glucose 93 Calcium 8.6 Magnesium 1.6 L Total Bilirubin 1.8 H Direct Bilirubin 0.5 H AST 34 ALT 15 Alkaline Phosphatase 99 D Total Protein 5.1 L Albumin 2.7 L Active Medications Generic Name Dose Route Start Last Admin Trade Name Freq PRN Reason Stop Dose Admin Anastrozole 1 mg 11/20/18 22:00 11/22/18 21:39 Arimidex - PO 1 mg HS CARLOTA Administration Gabapentin 300 mg 11/20/18 22:00 11/23/18 06:25 Neurontin - PO 300 mg TID CARLOTA Administration Lidocaine 1 patch 11/21/18 17:00 11/22/18 10:46 Lidoderm Patch - TP Not Given DAILY CARLOTA Losartan Potassium 100 mg 11/20/18 22:00 11/22/18 21:39 Cozaar - PO 100 mg HS CARLOTA Administration Metoprolol Succinate 25 mg 11/20/18 22:00 11/22/18 21:40 Toprol Xl - PO 25 mg HS CARLOTA Administration Miscellaneous 1 each 11/21/18 22:00 11/22/18 21:40 Lidoderm Patch Removal MC Not Given DAILY@2200 CARLOTA Mupirocin 1 applic 11/21/18 22:00 11/22/18 21:39 Bactroban 2% Cream - TP 1 applic BID CARLOTA Administration ASSESSMENT/PLAN:
[2018-11-23 08:17] LABS: ALBUMIN 2.8 g/dl (3.4-5.0); BILIRUBIN,DIRECT 0.4 mg/dL (0.0-0.2); BILIRUBIN,TOTAL 1.5 mg/dl (0.2-1); CALCIUM 8.8 mg/dl (8.5-10); CREATININE 0.7 mg/dl (0.55-1.3); MAGNESIUM 1.7 mg/dL (1.8-2.4); PHOSPHOROUS 3.3 mg/dl (2.5-4.9); POTASSIUM 3.3 mmol/L (3.5-5.1); TOT PROT 5.1 g/dl (6.4-8.2)
[2018-11-23] MEDS: MUPIROCIN CA 2% TOPICAL CREAM 15 GM TUBE TP SCH (10:00)
--- NOTE | 2018-11-23 11:49 | DS ---
Physical Exam: SUBJECTIVE: Patient seen and examined oob to chair. Walked with PT today. Left buttock pain remains but bilateral leg pain has resolved. OBJECTIVE: Vital Signs Period Temp Pulse Resp BP Sys/Rock Pulse Ox Last 24 Hr 97.9 F-99.1 F 76-93 16-18 140-169/57-71 94-98 PHYSICAL EXAM GENERAL: Awake, alert, and fully oriented, in no acute distress. LUNGS: Breath sounds equal, clear to auscultation bilaterally. No wheezes, and no crackles. No accessory muscle use. HEART: Regular rate and rhythm, S1 and S2 ABDOMEN: Soft, nontender, not distended MUSCULOSKELETAL: 5/5 sensory and motor in b/l LE UPPER EXTREMITIES: 2+ pulses, warm, well-perfused. No cyanosis. No clubbing. No peripheral edema. LOWER EXTREMITIES: 2+ pulses, warm, well-perfused. No calf tenderness. No peripheral edema. NEUROLOGICAL: Cranial nerves II-XII intact. Normal speech. SKIN: Warm, dry, normal turgor; surgical wound not visualized: steri strips Laboratory Results - last 24 hr 11/23/18 11/23/18 07:20 07:20 WBC 2.7 L RBC 2.97 L Hgb 9.6 L Hct 29.2 L MCV 98.2 H MCH 32.3 MCHC 32.9 RDW 14.7 Plt Count 65 L MPV 7.3 L Absolute Neuts (auto) 1.8 Neutrophils % 68.1 Lymphocytes % 17.8 Monocytes % 12.0 H Eosinophils % 1.9 Basophils % 0.2 Sodium 139 Potassium 3.3 L Chloride 112 H Carbon Dioxide 25 Anion Gap 2 L BUN 11.0 Creatinine 0.7 Est GFR (CKD-EPI)AfAm 104.64 Est GFR (CKD-EPI)NonAf 90.29 Random Glucose 102 Calcium 8.8 Phosphorus 3.3 Magnesium 1.7 L Total Bilirubin 1.5 H Direct Bilirubin 0.4 H AST 31 ALT 15 Alkaline Phosphatase 89 D Total Protein 5.1 L Albumin 2.8 L HOSPITAL COURSE: Date of Admission:11/20/18 Date of Discharge: 11/23/18 Pre hospital course 68 year-old female with a PMH significant for HTN, HLD, left breast cancer s/p lumpectomy 2018 on anastrazole, chronic thrombocytopenia, gout, nephrolithiasis , h/o perforated ulcer, chronic low back pain with RLE radiculopathy s/p L4-S1 bilateral laminectomy on 11/[address] Lion. Patient has been dependent on opioids for three years, was formally dismissed, in writing, from the pain management program at [facility] in August 2018. Shortly thereafter patient's sister reports patient went into withdrawal and felt very poorly. From 09/24 to 10/29, patient received prescriptions from an oral surgery practice for 98 opioid pills. Following her surgery on 11/05 she was prescribed additional opioids, valium, and tramadol (see I STOP search below). Patient states she has ingested all of these pills, she has nothing left at home. She thinks the pills ran out about a week ago which is when she states she developed left buttock pain, bilateral leg pain, difficulty walking, and falls. She describes the pain as shooting, sharp, unrelenting. Walking makes the pain worse, nothing makes it better. Patient denies fever, sweats, chills; denies nausea, vomiting, diarrhea. She denies tremors, anxiety, agitation, diaphoresis. ER course (1) WBC 2.1, platelets 56 (2) K3.3 Subsequent hospital course s/p L4-S1 bilateral laminectomy on 11/05/18 --11/20 MRI LS: 3 x 1.3 x 1cm ellipitical-shaped fluid structure within the central canal posteriorly at L5 and S1 levels with resultant ventral displacement and extrinisic indentation upon the traversing thecal sac --discussed with surgical team, no surgical intervention --walked 400 feet with PT on date of discharge, much improved Pain management Opioid dependency --pain initially treated with Tylenol, but concern for liver dysfunction; cannot give NSAIDS due to thrombocytopenia; cannot give opioids due to dependency --seen and evaluated by Dr. Mckay detox/behavioral health, recommends starting Lyrica; discussed with patient who is uncertain, wants to think about it; also potential interaction with gabapentin --continued gabapentin --no other pain meds were given nor did patient ask for any; there were no signs or symptoms of withdrawal during hospital stay Elevated bilirubin Splenomegaly --11/20 MRI showed a dilated CBD 8mm although patient denies symptoms of gallbladder disease; US on 11/21 with suspected dilitation of intrahepatic duct biliary tree --MRCP was done on 11/22: normal liver, no appreciable biliary ductal dilatation, no definite intrahepatic biliary ductal dilatation; marked periduodenal, henrietta hepatis, and periportal edema --will need outpatient followup Chronic thrombocytopenia Leukopenia --has been under care of dance entertainer Dr. Oreilly, pre-op platelets 72k on ; 65k at time of discharge; no signs of bleeding Breast cancer --continue anastrazole Minutes to complete discharge: 35 Discharge Summary Problems reviewed: Yes Reason For Visit: BACK PAIN,STATUS POST LAMINECTOMY WITH SPINAL Current Active Problems Back pain (Acute) S/P laminectomy with spinal fusion (Acute) Condition: Improved - Instructions Diet, Activity, Other Instructions: During your hospital stay you had several imaging studies. A CD-ROM is being provided to you so that you can share the images with your regular providers. One of the studies shows you have a left adnexal cyst. This requires follow up imaging with ultrasound. It is recommended you discuss this with Dr. Muro, your loading manager, or with a continuity manager, and make arrangements to have the additional imaging done as an outpatient. You should also follow up with Dr. Lion 1-2 weeks from discharge. Referrals: Vernon Muro MD [Non Staff, Medical] - 2 Weeks Lexa Hargrove [Non Staff, Medical] - 2 Weeks Carson Lion MD [Primary Care Provider] - 2 Weeks Josue Martini MD [Non Staff, Medical] - 2 Weeks Disposition: [facility] - Home Medications Comprehensive Discharge Medication List: Ambulatory Orders Anastrozole [Arimidex -] 1 mg PO HS 10/31/18 Gabapentin 300 mg PO TID 10/31/18 Losartan Potassium 100 mg PO HS 10/31/18 Metoprolol Succinate [Toprol Xl] 25 mg PO HS 10/31/18 Triamterene/Hydrochlorothiazid [Triamterene-Hctz 37.5-25 mg Cp] 1 tab PO HS This patient is new to me today: No Emergency Visit: Yes ED Registration Date: 11/20/18 Care time: The patient presented to the Emergency Department on the above date and was hospitalized for further evaluation of their emergent condition. Critical Care patient: No - Discharge Referral Referred to [facility] Med [facility].C.: No
[2018-11-23] MEDS: LIDOCAINE 5% TOPICAL PATCH TP SCH (12:24)
[2018-11-23 14:07] VITALS: BP 158/70; PULSE 52; TEMP 98
[2018-11-23] MEDS ORDERED: POTASSIUM CHLORIDE TABS 20 MEQ TABLET.ER (FP) PO ONE (14:30)
== END 2018-11-23 15:07 | DRG 920 ==
LOC: FER 14:08 → SUPCPDRO 14:08 → FM/S 20:12
PROVIDERS: ADMIT Internal Medicine; ATTEND Nurse Practitioner Acute Care
DX: G97.63 Postprocedural seroma of a nervous system organ or structure following a nervous system procedure (principal); F11.20 Opioid dependence, uncomplicated; M54.16 Radiculopathy, lumbar region; D69.6 Thrombocytopenia, unspecified; E87.6 Hypokalemia; E83.42 Hypomagnesemia; N83.8 Other noninflammatory disorders of ovary, fallopian tube and broad ligament; K74.60 Unspecified cirrhosis of liver; I10 Essential (primary) hypertension; E78.5 Hyperlipidemia, unspecified; Z85.3 Personal history of malignant neoplasm of breast; M10.9 Gout, unspecified; D72.819 Decreased white blood cell count, unspecified; R16.1 Splenomegaly, not elsewhere classified; K83.8 Other specified diseases of biliary tract; Y83.8 Other surgical procedures as the cause of abnormal reaction of the patient, or of later complication, without mention of misadventure at the time of the procedure; Z88.0 Allergy status to penicillin
CPT/HCPCS: 36415; 72148-TC; 74182-TC; 76700-TC; 80048; 80053; 80076; 80307; 82140; 83735; 84100; 85025; 85610; 86850; 86900; 86901; 93005; 97116-GP; 97162-GP; 99282-25; A9579; C1887; J0131; J7030

== ENCOUNTER 2018-12-07 19:47 | Inpatient (IN) | payer OTHER ==
--- NOTE | 2018-12-07 20:33 | PDOC ---
Documentation entered by Jess Carlos SCRIBE, acting as scribe for Devi Jovel MD. Devi Jovel MD: This documentation has been prepared by the Breanna kamara Nirvannie, SCRIBE, under my direction and personally reviewed by me in its entirety. I confirm that the documentation accurately reflects all work, treatment, procedures, and medical decision making performed by me. History of Present Illness - General Chief Complaint: Abnormal Lab Results (Outside) Stated Complaint: ABNORMAL LABS Time Seen by Provider: 12/07/18 19:59 History Source: Patient Exam Limitations: No Limitations - History of Present Illness Initial Comments: 12/07/18 20:23 HPI: The patient is a 68 year old female, with a significant past medical history of spinal stenosis (s/p recent laminectomy 11/05), hypertension, left breast cancer , and gastric ulcer, who presents to the emergency department via EMS from [facility] with, low hemoglobin. As per nursing paperwork, patient had a 1.3 unit drop in her hemoglobin over the course of 3 days (12/04: 8.7 and 12/07 : 7.4). Patient notes an episode of syncope a week ago which afterwards she became lethargic and weak until the administration of IV fluids. She also endorses one episode of a dark stool which she denies to be black. She denies recent fevers, chills, or headache. She denies recent nausea, vomiting, diarrhea or constipation. She denies recent dysuria, frequency, urgency or hematuria. She denies recent chest pain or shortness of breath. PAST MEDICAL HISTORY: no significant history PAST SURGICAL HISTORY: no significant history FAMILY HISTORY: no pertinent history SOCIAL HISTORY: Pt lives with family and is employed. MEDICATIONS: reviewed ALLERGIES: As per nursing notes ROS: General: No fevers or chills, no weakness, no weight loss HEENT: No change in vision. No sore throat. No ear pain CardioVascular: No chest pain or shortness of breath Respiratory:No cough, or wheezing. Gastrointestinal: no nausea, vomiting, diarrhea or constipation, No rectal bleeding Genitourinary: No dysuria, hematuria, or frequency Musculoskeletal: No joint or muscle pain or swelling Neurologic: +Loss of consciousness last week. No headache, vertigo, or dizziness. Psychiatric: nor depression Skin: No rashes or easy bruising Endocrine: no increased thirst or abnormal weight change Allergic: no skin or latex allergy All other systems reviewed and normal Physical Exam: General: Well-nourished well-developed individual, no acute distress HEENT: Throat: Normal, tonsils normal, no erythema or exudate Neck: Supple, no meningeal signs, no lymphadenopathy Eyes:+Pale conjuctiva. Pupils equal reactive and round, extraocular motion intact Chest: Nontender to palpation Cardiac: S1-S2 normal, regular rate and rhythm, no murmurs rubs or gallops Respiratory: Lungs clear to auscultation bilateral Abdomen: Soft, nondistended, normal bowel sounds, nontender to palpation diffusely Extremities: Warm, dry, no cyanosis, clubbing, or edema Skin: No rashes Neuro: Alert and oriented x3, nonfocal exam, grossly intact, normal gait Psych: Normal mood and affect 12/07/18 21:20 Assessment and plan: This is a 8-year-old female sent in from local [facility] for evaluation of anemia. Patient has had several H&H's over the last several days and her hemoglobin is been slowly decreasing. Patient's hemoglobin at the [facility] today was 7.4 however here in the emergency room it was 8.4. Patient also said that she had a syncopal episode a couple of days ago and tired and fatigued over the last couple of days. Patient denied any chest pain, shortness of breath, nausea vomiting or diarrhea. Patient said that she has had some dark stools and that her stool was positive for blood at the [facility]. Patient will be admitted to an inpatient bed for work-up of her anemia as well as transfusion. Past History - Past Medical History Allergies/Adverse Reactions: Allergies Allergy/AdvReac Type Severity Reaction Status Date / Time amoxicillin Allergy Intermediate Rash Verified 11/20/18 15:01 Penicillins Allergy Intermediate Rash Verified 11/20/18 15:01 Sulfa (Sulfonamide Allergy Intermediate Rash Verified 11/20/18 15:01 Antibiotics) Home Medications: Ambulatory Orders Anastrozole [Arimidex -] 1 mg PO HS 10/31/18 Gabapentin 300 mg PO TID 10/31/18 Losartan Potassium 100 mg PO HS 10/31/18 Metoprolol Succinate [Toprol Xl] 25 mg PO HS 10/31/18 Triamterene/Hydrochlorothiazid [Triamterene-Hctz 37.5-25 mg Cp] 1 tab PO HS Anemia: No Asthma: No Cancer: Yes (LEFT BREAST DX 2016) Cardiac Disorders: No CVA: No COPD: No CHF: No Dementia: No Diabetes: No GI Disorders: Yes (HX GASTRIC ULCER) Disorders: No HTN: Yes Hypercholesterolemia: No Liver Disease: Yes (FATTY LIVER- FUNCTION NORMAL) Seizures: No Thyroid Disease: No Other medical history: GENERALIZED EDEMA - Surgical History Abdominal Surgery: Yes (GASTRIC ULCER REPAIR- 2014) Appendectomy: No Cardiac Surgery: No Cholecystectomy: No Lung Surgery: No Neurologic Surgery: No Orthopedic Surgery: No - Psycho Social/Smoking Cessation Hx Smoking History: Never smoked Have you smoked in the past 12 months: No Hx Alcohol Use: No Drug/Substance Use Hx: No Substance Use Type: None Hx Substance Use Treatment: No *Physical Exam - Vital Signs Last Vital Signs Temp Pulse Resp BP Pulse Ox 98.7 F 114 H 16 139/53 L 100 12/07/18 19:57 12/07/18 19:57 12/07/18 19:57 12/07/18 19:57 12/07/18 19:57 ED Treatment Course - LABORATORY CBC & Chemistry Diagram: 12/07/18 20:15 12/07/18 20:15 - RADIOLOGY Radiology Studies Ordered: Category Date Time Status CHEST X-RAY PORTABLE* [RAD] Stat Radiology 12/07/18 20:15 Ordered Discharge - Discharge Information Problems reviewed: Yes Clinical Impression/Diagnosis: Anemia Qualifiers: Anemia type: unspecified type Qualified Code(s): D64.9 - Anemia, unspecified Syncope Qualifiers: Encounter type: initial encounter Condition: Stable - Admission Yes - Follow up/Referral Referrals: Owen Phan MD [Primary Care Provider] - - Patient Discharge Instructions - Post Discharge Activity
[2018-12-07 20:38] LABS: BASO % 0.4 % (0-2.0); EOS % 2.9 % (0-4.5); HEMATOCRIT 25.4 % (32.4-45.2); HEMOGLOBIN 8.3 GM/dl (10.7-15.3); LYMPH % 19.7 % (8-40); MCH 32.7 pg (25.7-33.7); MCHC 32.8 g/dl (32.0-36.0); MEAN CELL VOLUME 99.5 fl (80-96); MEAN PLT VOLUME 8.1 fl (7.5-11.1); MONO % 11.2 % (3.8-10.2); NEUT % 65.8 % (42.8-82.8); PLATELET COUNT 126 K/MM3 (134-434); RBC 2.55 M/mm3 (3.60-5.2); RDW 14.7 % (11.6-15.6); WHITE BLOOD COUNT 5.2 K/mm3 (4.0-10.8)
[2018-12-07 20:42] LABS: INR 1.19 (0.82-1.09); PROTHROMBIN TIME (PATIENT) 13.3 SEC (10.2-13.0)
[2018-12-07 20:48] LABS: ALBUMIN 3.1 g/dl (3.4-5.0); BILIRUBIN,TOTAL 0.5 mg/dl (0.2-1); CALCIUM 8.6 mg/dl (8.5-10); CREATININE 0.8 mg/dl (0.55-1.3); POTASSIUM 3.2 mmol/L (3.5-5.1); TOT PROT 5.8 g/dl (6.4-8.2)
[2018-12-07] MEDS ORDERED: POTASSIUM CHLORIDE TABS 20 MEQ TABLET.ER (FP) PO ONE ×2 (21:17→21:20)
[2018-12-07] MEDS ORDERED: SODIUM CHLORIDE 1,000 ML IV ONE (21:21)
[2018-12-07 23:18] VITALS: BMI 27.0
[2018-12-08] MEDS: GABAPENTIN 300 MG CAPSULE (FP) PO SCH ×3 (06:24→22:17)
[2018-12-08 08:44] LABS: HEMATOCRIT 21.5 % (32.4-45.2); HEMOGLOBIN 7.2 GM/dl (10.7-15.3); MCH 33.3 pg (25.7-33.7); MCHC 33.5 g/dl (32.0-36.0); MEAN CELL VOLUME 99.6 fl (80-96); MEAN PLT VOLUME 8.7 fl (7.5-11.1); PLATELET COUNT 78 K/MM3 (134-434); RBC 2.16 M/mm3 (3.60-5.2); RDW 14.6 % (11.6-15.6); WHITE BLOOD COUNT 2.6 K/mm3 (4.0-10.8)
--- NOTE | 2018-12-08 08:45 | HP ---
CHIEF COMPLAINT: Anemia PCP [facility] : Carson Lion, Oncology : Josue Reyes HISTORY OF PRESENT ILLNESS: This is a 68 year-old female with a PMH significant for HTN, HLD, left breast cancer s/p lumpectomy 2018 on Anastrazole, chronic thrombocytopenia, gout, nephrolithiasis, h/o perforated ulcer, chronic low back pain with RLE radiculopathy, s/p L4-S1 bilateral laminectomy on 11/05/[address] Lion and opioid dependence, who was sent from Rehab ( [facility]) for the evaluation of anemia. As per Rehab,patient has had several H&H's over the last several days and her hemoglobin is been slowly decreasing. Patient's hemoglobin at the halfway was 7.4 however here in the emergency room it was 8.4. Patient denied any chest pain, shortness of breath,palpitations, abdominal pain, N/V/D, rectal bleeding, melena or urinary symptoms. According to the ER note, patient said that she has had some dark stools and that her stool was positive for blood at the Rehab. And also notes an episode of syncope a week ago with weakness/ lethargy. Pt received IV hydration with improvement. Pt states that it was due to Lyrica and now off it. Pt was recently admitted with 12/01/18 to 11/23/18 with bilateral leg pain and falls and sent to [facility] for Rehab. 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 Chronic thrombocytopenia Gout Nephrolithiasis Endometrial hyperplasia Perforated ulcer (2013, in ICU x 2 weeks in [facility]) PAST SURGICAL HISTORY: Left breast lumpectomy (2018) D&C/Hysteroscopy (2018) bilateral laminectomy on 11/05/18 Social History: Smoking:No Alcohol:No Drugs: No Family history: sister with breast cancer; father 93 with HTN; mother 53 complications from gallbladder surgery; family h/o diabetes Allergies amoxicillin Allergy (Intermediate, Verified 11/20/18 15:01) Rash Penicillins Allergy (Intermediate, Verified 11/20/18 15:01) Rash Sulfa (Sulfonamide Antibiotics) Allergy (Intermediate, Verified 11/20/18 15:01) Rash HOME MEDICATIONS: Home Medications Medication Instructions Recorded Anastrozole [Arimidex -] 1 mg PO HS 10/31/18 Gabapentin 300 mg PO TID 10/31/18 Losartan Potassium 100 mg PO HS 10/31/18 Metoprolol Succinate [Toprol Xl] 25 mg PO HS 10/31/18 Triamterene/Hydrochlorothiazid 1 tab PO HS 10/31/18 [Triamterene-Hctz 37.5-25 mg Cp] Pantoprazole Sodium [Protonix] 40 mg PO DAILY 12/07/18 Potassium Chloride 1 tab PO DAILY 12/07/18 REVIEW OF SYSTEMS CONSTITUTIONAL: Absent: fever, chills, diaphoresis, generalized weakness, malaise, loss of appetite, weight change HEENT: Absent: rhinorrhea, nasal congestion, throat pain, throat swelling, difficulty swallowing, mouth swelling, ear pain, eye pain, visual changes CARDIOVASCULAR: Absent: chest pain, syncope, palpitations, irregular heart rate, lightheadedness , peripheral edema RESPIRATORY: Absent: cough, shortness of breath, dyspnea with exertion, orthopnea, wheezing, stridor, hemoptysis GASTROINTESTINAL: Absent: abdominal pain, abdominal distension, nausea, vomiting, diarrhea, constipation, melena, hematochezia GENITOURINARY: Absent: dysuria, frequency, urgency, hesitancy, hematuria, flank pain, genital pain MUSCULOSKELETAL: Absent: myalgia, arthralgia, joint swelling, back pain, neck pain SKIN: Absent: rash, itching, pallor HEMATOLOGIC/IMMUNOLOGIC: Absent: easy bleeding, easy bruising, lymphadenopathy, frequent infections ENDOCRINE: Absent: unexplained weight gain, unexplained weight loss, heat intolerance, cold intolerance NEUROLOGIC: Absent: headache, focal weakness or paresthesias, dizziness, unsteady gait, seizure, mental status changes, bladder or bowel incontinence PSYCHIATRIC: Absent: anxiety, depression, suicidal or homicidal ideation, hallucinations. PHYSICAL EXAMINATION Vital Signs - 24 hr 12/07/18 12/07/18 12/07/18 19:57 21:51 22:15 Temperature 98.7 F 98.4 F Pulse Rate 114 H 110 H Pulse Rate [ 110 H Radial] Respiratory 16 19 Rate Blood Pressure 139/53 L 148/60 Blood Pressure 123/74 [Arm] O2 Sat by Pulse 100 99 100 Oximetry (%) 12/07/18 12/08/18 12/08/18 22:30 01:37 02:31 Temperature 98.4 F 97.9 F Pulse Rate 110 H 102 H Pulse Rate [ Radial] Respiratory 19 19 19 Rate Blood Pressure 148/60 111/51 L Blood Pressure [Arm] O2 Sat by Pulse 99 99 99 Oximetry (%) 12/08/18 12/08/18 12/08/18 06:00 06:33 07:54 Temperature 97.7 F Pulse Rate 101 H Pulse Rate [ Radial] Respiratory 17 Rate Blood Pressure 143/63 Blood Pressure [Arm] O2 Sat by Pulse 97 97 Oximetry (%) GENERAL: Awake, alert, and fully oriented, in no acute distress. HEAD: Normal with no signs of trauma. EYES: Pupils equal, round and reactive to light, extraocular movements intact, sclera anicteric, conjunctiva clear. No lid lag. EARS, NOSE, THROAT: Ears normal, nares patent, oropharynx clear without exudates. Moist mucous membranes. NECK: Normal range of motion, supple without lymphadenopathy, JVD, or masses. LUNGS: Breath sounds equal, clear to auscultation bilaterally. No wheezes, and no crackles. No accessory muscle use. HEART: Regular rate and rhythm, normal S1 and S2 without murmur, rub or gallop. ABDOMEN: Soft, nontender, not distended, normoactive bowel sounds, no guarding, no rebound, no masses. No hepatomegaly or splenomegaly. MUSCULOSKELETAL: Normal range of motion at all joints. No bony deformities or tenderness. No CVA tenderness. UPPER EXTREMITIES: 2+ pulses, warm, well-perfused. No cyanosis. No clubbing. No peripheral edema. LOWER EXTREMITIES: 2+ pulses, warm, well-perfused. No calf tenderness. No peripheral edema. NEUROLOGICAL: Cranial nerves II-XII intact. Normal speech. Normal gait. PSYCHIATRIC: Cooperative. Good eye contact. Appropriate mood and affect. SKIN: Warm, dry, normal turgor, no rashes or lesions noted, normal capillary refill. rectal exam: rectal vault empty Laboratory Results - last 24 hr 10/12/07/18 12/07/18 20:15 20:15 20:15 WBC 5.2 RBC 2.55 L Hgb 8.3 L Hct 25.4 L MCV 99.5 H MCH 32.7 MCHC 32.8 RDW 14.7 Plt Count 126 L MPV 8.1 Absolute Neuts (auto) 3.5 Neutrophils % 65.8 Lymphocytes % 19.7 Monocytes % 11.2 H Eosinophils % 2.9 Basophils % 0.4 PT with INR INR Sodium 138 Potassium 3.2 L Chloride 112 H Carbon Dioxide 23 Anion Gap 3 L BUN 11.0 Creatinine 0.8 Est GFR (CKD-EPI)AfAm 89.04 Est GFR (CKD-EPI)NonAf 76.83 Random Glucose 115 H Calcium 8.6 Total Bilirubin 0.5 AST 53 H ALT 32 Alkaline Phosphatase 92 Creatine Kinase 22 L Troponin I < 0.03 Total Protein 5.8 L Albumin 3.1 L Blood Type Antibody Screen 12/07/18 12/07/18 12/08/18 20:15 20:15 02:00 WBC RBC Hgb Hct MCV MCH MCHC RDW Plt Count MPV Absolute Neuts (auto) Neutrophils % Lymphocytes % Monocytes % Eosinophils % Basophils % PT with INR 13.3 H INR 1.19 Sodium Potassium Chloride Carbon Dioxide Anion Gap BUN Creatinine Est GFR (CKD-EPI)AfAm Est GFR (CKD-EPI)NonAf Random Glucose Calcium Total Bilirubin AST ALT Alkaline Phosphatase Creatine Kinase Troponin I Cancelled Total Protein Albumin Blood Type O NEGATIVE Antibody Screen Negative 12/08/18 02:00 WBC RBC Hgb Hct MCV MCH MCHC RDW Plt Count MPV Absolute Neuts (auto) Neutrophils % Lymphocytes % Monocytes % Eosinophils % Basophils % PT with INR INR Sodium Potassium Chloride Carbon Dioxide Anion Gap BUN Creatinine Est GFR (CKD-EPI)AfAm Est GFR (CKD-EPI)NonAf Random Glucose Calcium Total Bilirubin AST ALT Alkaline Phosphatase Creatine Kinase Troponin I < 0.02 Total Protein Albumin Blood Type Antibody Screen ASSESSMENT/PLAN: This is a 68 year-old female with a PMH significant for HTN, HLD, left breast cancer s/p lumpectomy 2018 on anastrazole, chronic thrombocytopenia, gout, nephrolithiasis, h/o perforated ulcer, chronic low back pain with RLE radiculopathy s/p L4-S1 bilateral laminectomy on 11/05/[address] Lion. and opioid dependence, who was sent from [facility]hab ( [facility]) for the evaluation of anemia. * Anemia. r/o GI bleed - Hgb baseline ( -) - H/H trending down 8.3/25.4> 7.2/21.5 - will transfuse 1 unit of blood - will cont on PPI - will check Fe studies, B12, Folate, haptoglobin and LDH - stool occult sent - GI Dr. Knight consulted - pt reports had a negative EGD few months ago by - will f/u on CBC * Syncope reported/due to anemia vs Lyrica use - CT head ordered -neuro checks - will check orthostatic vitals - EKG: ST 110's, no acute ST changes - trop neg x2 * HTN - will cont on home meds *Hypokalemia likley due to diuretic use -K 3.6 today - will cont on Kdur 10meg -Mg 1.4- will replacement ordered -replete PRN * Hx of Breast cancer -will cont on Anastrazole *Hyperlipidemia -not on statin therapy * s/p L4-S1 bilateral laminectomy on 11/05/18 - stable - will cont on Neurontin * Hx of Dilated common bile duct,Splenomegaly- asymptomatic -11/20/18 MRI shows dilated CBD 8mm although patient denies symptoms of gallbladder disease - mildly elevated AST, ALT, ALK and Total bili- wnl *Chronic thrombocytopenia - PLT 126>78 - pt f/u with vehicle leasing and rental manager Dr. Oreilly, pre-op platelets 72k on 10/31/18; -will monitor * Hx of Opioid dependency -seen by S, rec Lyrica 50 mg tid - off Lyrica now, ? s/p syncope FEN Electrolytes: replete as indicated Nutrition: Clear liquid diet DVT prophylaxis: SCDs, will hold off Ac in view of anemia Code status: full Spoke with pt niece Dr. Johnson, who states that pt had recent lab at he rehab which revealed elevated bun/ cre and trending done H/H. contact information Tele # [phone] Visit type - Emergency Visit Emergency Visit: Yes ED Registration Date: 12/07/18 Care time: The patient presented to the Emergency Department on the above date and was hospitalized for further evaluation of their emergent condition. - New Patient This patient is new to me today: Yes Date on this admission: 12/08/18 - Critical Care Critical Care patient: No
[2018-12-08 09:17] LABS: ALBUMIN 2.7 g/dl (3.4-5.0); BILIRUBIN,TOTAL 0.9 mg/dl (0.2-1); CALCIUM 8.6 mg/dl (8.5-10); CREATININE 0.8 mg/dl (0.55-1.3); MAGNESIUM 1.4 mg/dL (1.8-2.4); POTASSIUM 3.6 mmol/L (3.5-5.1)
[2018-12-08] MEDS ORDERED: MAGNESIUM SULF 50% (8.12 MEQ/2 ML-1 GM VIAL) IVPB ONE (09:46)
[2018-12-08] MEDS: PANTOPRAZOLE SODIUM 40 MG VIAL IVPUSH SCH ×2 (10:06→22:17)
[2018-12-08] MEDS: POTASSIUM CHLORIDE TABS 10 MEQ TABLET.ER (FP) PO SCH (10:06)
[2018-12-08] MEDS: LOSARTAN POTASSIUM 50 MG TABLET (FP) PO SCH (10:06)
[2018-12-08 12:02] LABS: IRON SERUM 35 ug/dL (50-175); TOTAL IRON BINDING CAPACITY 243 ug/dL (250-450)
--- NOTE | 2018-12-08 14:39 | EKG ---
Test Reason : Blood Pressure : / mmHG Vent. Rate : 113 BPM Atrial Rate : 113 BPM P-R Int : 150 ms QRS Dur : 080 ms QT Int : 344 ms P-R-T Axes : 049 043 025 degrees QTc Int : 471 ms SINUS TACHYCARDIA OTHERWISE NORMAL ECG WHEN COMPARED WITH ECG OF 20-NOV-2018 19:49, NO SIGNIFICANT CHANGE WAS FOUND Confirmed by TRINITY GRANADOS MD ([id number]) on 12/08/2018 2:39:14 PM Referred By: MD MATTHEWS Confirmed By:TRINITY GRNAADOS MD
--- NOTE | 2018-12-08 15:14 | PN ---
Progress Note (short form) - Note Progress Note: Patient seen and consult dictated. Patient with recent gradual drop in Hct along with report of heme+ stool (at Rehab),and low iron stdies. Has hx of partial?gastrectomy for Gastric ulcer years ago with ?stricture at anastamosis. Denies N/V/Abd pain or BRBPR (?recent dark stool) Denies use of ASA, NSAIDs Suspect chronic GI blood loss with recent exacerbation/drop in Hct. Last colonoscopy 8+ years ago and had EGD earlier this year (for ?dilatation of stricture). Agree with PRBC transfusion, PPI therapy and clear liquid diet. Will arrange for both EGD and colonoscopy on Monday
[2018-12-08 17:17] LABS: PLATELET ESTIMATE SLT DECREASE
[2018-12-08 18:19] LABS: EOS % 3.3 % (0-4.5); HEMATOCRIT 26.1 % (32.4-45.2); HEMOGLOBIN 8.8 GM/dl (10.7-15.3); LYMPH % 22.2 % (8-40); MCH 32.9 pg (25.7-33.7); MCHC 33.8 g/dl (32.0-36.0); MEAN CELL VOLUME 97.3 fl (80-96); MEAN PLT VOLUME 9.1 fl (7.5-11.1); MONO % 9.3 % (3.8-10.2); NEUT % 61.2 % (42.8-82.8); PLATELET COUNT 92 K/MM3 (134-434); RBC 2.68 M/mm3 (3.60-5.2); RDW 15.8 % (11.6-15.6); WHITE BLOOD COUNT 2.8 K/mm3 (4.0-10.8)
[2018-12-08] MEDS ORDERED: PATIENT'S OWN MEDICATION (NON-FORMULARY) (Losartan Potassium [Losartan Potassium] 100 MG) PO SCH (22:00)
[2018-12-08] MEDS ORDERED: PT OWN MED DRAWER 7, Y5N ONE (22:09)
[2018-12-08] MEDS: FERROUS SO4 325 MG TABLET (FP) PO SCH (22:17)
[2018-12-08] MEDS: metoPROLOL SUCCINATE 25 MG TAB.SR.24H (FP) PO SCH (22:17)
[2018-12-08] MEDS: ANASTROZOLE 1 MG TABLET PO SCH (22:17)
[2018-12-08] MEDS: TRIAMTERENE AND HCTZ - 37.5 MG/25 MG CAPSULE PO SCH (23:55)
[2018-12-09] MEDS: GABAPENTIN 300 MG CAPSULE (FP) PO SCH ×3 (06:21→21:54)
[2018-12-09] MEDS ORDERED: PT OWN MED DRAWER 7, Y5N ONE ×2 (06:41→21:41)
[2018-12-09 08:34] LABS: BASO % 0.3 % (0-2.0); EOS % 2.9 % (0-4.5); HEMATOCRIT 24.9 % (32.4-45.2); HEMOGLOBIN 8.2 GM/dl (10.7-15.3); LYMPH % 27.8 % (8-40); MCH 31.9 pg (25.7-33.7); MCHC 32.8 g/dl (32.0-36.0); MEAN CELL VOLUME 97.3 fl (80-96); MEAN PLT VOLUME 8.9 fl (7.5-11.1); MONO % 11.6 % (3.8-10.2); NEUT % 57.4 % (42.8-82.8); PLATELET COUNT 89 K/MM3 (134-434); RBC 2.56 M/mm3 (3.60-5.2); RDW 16.5 % (11.6-15.6); WHITE BLOOD COUNT 2.9 K/mm3 (4.0-10.8)
[2018-12-09] MEDS: PANTOPRAZOLE SODIUM 40 MG VIAL IVPUSH SCH ×2 (10:23→21:53)
[2018-12-09] MEDS: FERROUS SO4 325 MG TABLET (FP) PO SCH ×2 (10:23→21:54)
[2018-12-09] MEDS: POTASSIUM CHLORIDE TABS 10 MEQ TABLET.ER (FP) PO SCH (10:23)
[2018-12-09] MEDS: LOSARTAN POTASSIUM 50 MG TABLET (FP) PO SCH (10:23)
--- NOTE | 2018-12-09 11:22 | PN ---
Physical Exam: SUBJECTIVE: Patient seen and examined, denies pain, sob. right FA ecchymosis noted (healing), no sign of infiltration, ecchymosis present prior to blood transfusion, IV patent as per nursing. s/p 1 unit PRBC yesterday, seen by GI, EGD/colonoscopy tomorrow CMP, Mag ordered for this morning OBJECTIVE: Vital Signs Period Temp Pulse Resp BP Sys/Rock Pulse Ox Last 24 Hr 97.7 F-98.5 F 72-98 17-18 101-150/47-55 97-100 GENERAL: The patient is awake, alert, and fully oriented, in no acute distress. HEAD: Normal with no signs of trauma. EYES: PERRL, extraocular movements intact, sclera anicteric, conjunctiva clear. No ptosis. ENT: Ears normal, nares patent, oropharynx clear without exudates, moist mucous membranes. NECK: Trachea midline, full range of motion, supple. LUNGS: Breath sounds equal, clear to auscultation bilaterally, no wheezes, no crackles, no accessory muscle use. HEART: Regular rate and rhythm, S1, S2 without murmur, rub or gallop. ABDOMEN: Soft, nontender, nondistended, normoactive bowel sounds, no guarding, no rebound, no hepatosplenomegaly, no masses. EXTREMITIES: 2+ pulses, warm, well-perfused, no edema. NEUROLOGICAL: Cranial nerves II through XII grossly intact. Normal speech, gait not observed. PSYCH: Normal mood, normal affect. SKIN: RIGHT FA- ecchymosis, healing, Warm, dry, normal turgor, no rashes or lesions noted Laboratory Results - last 24 hr 12/08/18 12/08/18 12/08/18 07:50 07:50 07:50 WBC RBC Hgb Hct MCV MCH MCHC RDW Plt Count MPV Absolute Neuts (auto) Neutrophils % Neutrophils % (Manual) 56.0 Lymphocytes % Lymphocytes % (Manual) 28.0 Monocytes % Monocytes % (Manual) 12 H Eosinophils % Eosinophils % (Manual) 4.0 Basophils % Hypochromia 1+ Platelet Estimate Slt decrease Haptoglobin 85 Iron 35 L TIBC 243 L Iron Saturation 14 L Unsaturated IBC 208 Serum Folate 6 12/08/18 12/09/18 17:58 08:20 WBC 2.8 L 2.9 L RBC 2.68 L 2.56 L Hgb 8.8 L 8.2 L Hct 26.1 L D 24.9 L MCV 97.3 H 97.3 H MCH 32.9 31.9 MCHC 33.8 32.8 RDW 15.8 H 16.5 H Plt Count 92 L 89 L MPV 9.1 8.9 Absolute Neuts (auto) 1.7 1.7 Neutrophils % 61.2 57.4 Neutrophils % (Manual) Lymphocytes % 22.2 27.8 Lymphocytes % (Manual) Monocytes % 9.3 11.6 H Monocytes % (Manual) Eosinophils % 3.3 2.9 Eosinophils % (Manual) Basophils % 4.0 H 0.3 Hypochromia Platelet Estimate Haptoglobin Iron TIBC Iron Saturation Unsaturated IBC Serum Folate Active Medications Generic Name Dose Route Start Last Admin Trade Name Freq PRN Reason Stop Dose Admin Anastrozole 1 mg 12/08/18 22:00 12/08/18 22:17 Arimidex - PO 1 mg HS ACRLOTA Administration Ferrous Sulfate 325 mg 12/08/18 22:00 12/09/18 10:23 Feosol - PO 325 mg BID CARLOTA Administration Gabapentin 300 mg 12/08/18 06:00 12/09/18 06:21 Neurontin - PO 300 mg TID CARLOTA Administration Losartan Potassium 100 mg 12/08/18 10:00 12/09/18 10:23 Cozaar - PO 100 mg DAILY CARLOTA Administration Metoprolol Succinate 25 mg 12/08/18 22:00 12/08/18 22:17 Toprol Xl - PO 25 mg HS CARLOTA Administration Pantoprazole Sodium 40 mg 12/08/18 10:00 12/09/18 10:23 Protonix Iv IVPUSH 40 mg BID CARLOTA Administration Polyethylene Glycol/Electrolytes 4,000 ml 12/09/18 16:00 Nulytely PO 12/09/18 16:01 ONCE ONE Potassium Chloride 10 meq 12/08/18 10:00 12/09/18 10:23 K-Dur - PO 10 meq DAILY CARLOTA Administration Triamterene/HCTZ 1 cap 12/08/18 22:00 12/08/18 23:55 Dyazide 25/37.5mg PO 1 cap HS CARLOTA Administration ASSESSMENT/PLAN: This is a 68 year-old female with a PMH significant for HTN, HLD, left breast cancer s/p lumpectomy 2018 on anastrazole, chronic thrombocytopenia, gout, nephrolithiasis, h/o perforated ulcer, chronic low back pain with RLE radiculopathy s/p L4-S1 bilateral laminectomy on 11/05/[address] Lion. and opioid dependence, who was sent from Re[facility] ( [facility]) for the evaluation of anemia. * Anemia- r/o GI bleed - Hgb baseline ( 10-23) - H/H trending down 8.3/25.4> 7.2/21.5 - s/p 1 unit PRBC - c/w PPI - iron studies reviewed - stool occult negative - GI Dr. Knight consulted- EGD, Colonoscopy tomorrow -NPO midnight - pt reports had a negative EGD few months ago by * Syncope reported/due to anemia vs Lyrica use - CT head no acute findings -neuro checks - EKG: ST 110's, no acute ST changes - trop neg x2 * HTN - c/w home meds *Hypokalemia likley due to diuretic use - K+ today - will cont on Kdur 10meg -Mg 1.4- repleted, mag ordered for today -replete PRN * Hx of Breast cancer -will cont on Anastrazole *Hyperlipidemia -not on statin therapy * s/p L4-S1 bilateral laminectomy on 11/05/18 - stable - will cont on Neurontin * Hx of Dilated common bile duct,Splenomegaly- asymptomatic -11/20/18 MRI shows dilated CBD 8mm although patient denies symptoms of gallbladder disease - mildly elevated AST, ALT, ALK and Total bili- wnl *Chronic thrombocytopenia - PLT 89 today - pt f/u with independent driver Dr. Oreilly, pre-op platelets 72k on 10/31/18; -will monitor * Hx of Opioid dependency -seen by S, rec Lyrica 50 mg tid - off Lyrica now, ? s/p syncope FEN Electrolytes: replete as indicated Nutrition: Clear liquid diet DVT prophylaxis: SCDs, will hold off Ac in view of anemia Code status: full pt niece Dr. Johnson, Tele # [phone] Visit type - Emergency Visit Emergency Visit: Yes ED Registration Date: 12/07/18 Care time: The patient presented to the Emergency Department on the above date and was hospitalized for further evaluation of their emergent condition. - New Patient This patient is new to me today: Yes Date on this admission: 12/09/18 - Critical Care Critical Care patient: No
[2018-12-09 13:51] LABS: ALBUMIN 2.8 g/dl (3.4-5.0); BILIRUBIN,TOTAL 1.1 mg/dl (0.2-1); CALCIUM 8.9 mg/dl (8.5-10); CREATININE 0.7 mg/dl (0.55-1.3); MAGNESIUM 1.7 mg/dL (1.8-2.4); POTASSIUM 4.5 mmol/L (3.5-5.1); TOT PROT 5.3 g/dl (6.4-8.2)
[2018-12-09] MEDS ORDERED: PEG/ELECTROLYTES (NULYTELY) 4,000 ML BOTTLE PO ONE (16:00)
[2018-12-09] MEDS: TRIAMTERENE AND HCTZ - 37.5 MG/25 MG CAPSULE PO SCH (21:53)
[2018-12-09] MEDS: ANASTROZOLE 1 MG TABLET PO SCH (21:54)
[2018-12-09] MEDS: metoPROLOL SUCCINATE 25 MG TAB.SR.24H (FP) PO SCH (21:54)
[2018-12-09] MEDS: MAGNESIUM OXIDE 400 MG TABLET (FP) PO SCH (21:54)
[2018-12-10] MEDS: GABAPENTIN 300 MG CAPSULE (FP) PO SCH (06:05)
[2018-12-10 06:32] VITALS: TEMP 97.6
[2018-12-10] MEDS ORDERED: MAGNESIUM 1GM/D5W - 1 GM/100 ML IVPB IVPB ONE ×2 (08:30→09:15)
[2018-12-10 08:31] LABS: BASO % 0.4 % (0-2.0); EOS % 3.8 % (0-4.5); HEMATOCRIT 26.3 % (32.4-45.2); HEMOGLOBIN 8.5 GM/dl (10.7-15.3); LYMPH % 29.9 % (8-40); MCH 31.7 pg (25.7-33.7); MCHC 32.4 g/dl (32.0-36.0); MEAN PLT VOLUME 8.9 fl (7.5-11.1); MONO % 11.5 % (3.8-10.2); NEUT % 54.4 % (42.8-82.8); PLATELET COUNT 96 K/MM3 (134-434); RBC 2.68 M/mm3 (3.60-5.2); RDW 15.8 % (11.6-15.6)
[2018-12-10 08:52] LABS: ALBUMIN 2.6 g/dl (3.4-5.0); BILIRUBIN,TOTAL 0.8 mg/dl (0.2-1); CALCIUM 8.9 mg/dl (8.5-10); CREATININE 0.7 mg/dl (0.55-1.3); MAGNESIUM 1.6 mg/dL (1.8-2.4); TOT PROT 4.9 g/dl (6.4-8.2)
[2018-12-10] MEDS: LOSARTAN POTASSIUM 50 MG TABLET (FP) PO SCH (09:36)
[2018-12-10] MEDS: PANTOPRAZOLE SODIUM 40 MG VIAL IVPUSH SCH (09:37)
--- NOTE | 2018-12-10 12:04 | PN ---
Progress Note, Physician - Current Medication List Current Medications: Active Medications Anastrozole (Arimidex -) 1 mg PO HS [facility] Last Admin: 12/09/18 21:54 Dose: 1 mg Ferrous Sulfate (Feosol -) 325 mg PO BID [facility] Last Admin: 12/09/18 21:54 Dose: 325 mg Gabapentin (Neurontin -) 300 mg PO TID [facility] Last Admin: 12/10/18 06:05 Dose: 300 mg Losartan Potassium (Cozaar -) 100 mg PO DAILY [facility] Last Admin: 12/10/18 09:36 Dose: Not Given Magnesium Oxide (Mag-Ox -) 400 mg PO BID [facility] Last Admin: 12/09/18 21:54 Dose: 400 mg Metoprolol Succinate (Toprol Xl -) 25 mg PO HS [facility] Last Admin: 12/09/18 21:54 Dose: 25 mg Pantoprazole Sodium (Protonix Iv) 40 mg IVPUSH BID [facility] Last Admin: 12/10/18 09:37 Dose: 40 mg Potassium Chloride (K-Dur -) 10 meq PO DAILY [facility] Last Admin: 12/09/18 10:23 Dose: 10 meq Triamterene/HCTZ (Dyazide 25/37.5mg) 1 cap PO HS [facility] Last Admin: 12/09/18 21:53 Dose: 1 cap - Objective Vital Signs: Vital Signs Temperature 97.6 F 12/10/18 06:00 Pulse Rate 66 12/10/18 06:00 Respiratory Rate 18 12/10/18 06:00 Blood Pressure 112/37 L 12/10/18 06:00 O2 Sat by Pulse Oximetry (%) 96 12/10/18 08:25 Labs: CBC, BMP 12/10/18 06:44 12/10/18 08:28 INR, PTT INR 1.19 (0.82-1.09) 12/07/18 20:15
--- NOTE | 2018-12-10 12:46 | PN ---
Progress Note (short form) - Note Progress Note: Upper endoscopy and colonoscopy performed with reports in chart. EGD notable for tight stricture with ulcer at the gastroenterostomy site with some retained solid food in stomach Colonoscopy notable for 2 non-bleeding AVMs in the proximal risght colon ( ablated) and few sigmoid diverticuli. Suspect the gastric stricture with ulceration cause of patient's symptoms including the drop in Hct and the "feeling of fullness" after eating The iron deficiency anemia may be due to a combination of the ulcer and the AVMs Rec PPI daily soft or liquid diet UGI series Surgical evaluation ?revision of the anastamosis follow CBC
[2018-12-10 12:48] VITALS: BP 98/57; PULSE 77
[2018-12-10] MEDS: MAGNESIUM OXIDE 400 MG TABLET (FP) PO SCH (13:26)
[2018-12-10] MEDS: FERROUS SO4 325 MG TABLET (FP) PO SCH (13:26)
[2018-12-10] MEDS: POTASSIUM CHLORIDE TABS 10 MEQ TABLET.ER (FP) PO SCH (13:26)
--- NOTE | 2018-12-10 14:01 | DS ---
Physical Exam: SUBJECTIVE: Patient seen and examined OBJECTIVE: Vital Signs Period Temp Pulse Resp BP Sys/Rock Pulse Ox Last 24 Hr 97.4 F-97.8 F 66-83 17-18 98-115/37-57 96-100 PHYSICAL EXAM GENERAL: The patient is awake, alert, and fully oriented, in no acute distress. HEAD: Normal with no signs of trauma. EYES: PERRL, extraocular movements intact, sclera anicteric, conjunctiva clear. ENT: Ears normal, nares patent, oropharynx clear without exudates, moist mucous membranes. NECK: Trachea midline, full range of motion, supple. LUNGS: Breath sounds equal, clear to auscultation bilaterally, no wheezes, no crackles, no accessory muscle use. HEART: Regular rate and rhythm, S1, S2 without murmur, rub or gallop. ABDOMEN: Soft, nontender, nondistended, normoactive bowel sounds, no guarding, no rebound, hepatosplenomegaly, no masses. EXTREMITIES: 2+ pulses, warm, well-perfused, no edema. NEUROLOGICAL: Cranial nerves II through XII grossly intact. Normal speech, gait slow and steady PSYCH: Normal mood, normal affect. SKIN: Warm, dry, normal turgor, no rashes or lesions noted. LABS Laboratory Results - last 24 hr 12/10/18 12/10/18 06:44 08:28 WBC 3.0 L RBC 2.68 L Hgb 8.5 L Hct 26.3 L MCV 98.0 H MCH 31.7 MCHC 32.4 RDW 15.8 H Plt Count 96 L MPV 8.9 Absolute Neuts (auto) 1.7 Neutrophils % 54.4 Lymphocytes % 29.9 Monocytes % 11.5 H Eosinophils % 3.8 Basophils % 0.4 Sodium 142 Potassium 4.0 Chloride 111 H Carbon Dioxide 25 Anion Gap 6 L BUN 7.0 Creatinine 0.7 Est GFR (CKD-EPI)AfAm 104.64 Est GFR (CKD-EPI)NonAf 90.29 Random Glucose 88 Calcium 8.9 Magnesium 1.6 L Total Bilirubin 0.8 AST 32 ALT 22 Alkaline Phosphatase 80 Total Protein 4.9 L Albumin 2.6 L HOSPITAL COURSE: Date of Admission:12/07/18 Date of Discharge: 12/10/18 Minutes to complete discharge: 60 Discharge Summary Problems reviewed: Yes Reason For Visit: ANEMIA,SYNCOPE Current Active Problems Anemia (Acute) Syncope (Acute) Procedures: Principal: CXR 12/07/2018. Chest: Admission. A single AP view of the chest reveals chin artifact, clear lungs, prominent mediastinum and sharp angles. The soft tissues are intact. An acute process is not seen. Degenerative changes are noted. There are no prior studies for comparison. Reported By: Sebastian Luna MD 12/08/[address] head: 12/08/2018. IMPRESSION: No evidence of acute intracranial pathology. Reported By: Cyril Jordan MD 12/08/18 1600. Other Procedures: EGD 12/10/2018. Impression: 1. stenosis was found in the distal gastric body/anastamosis. 2. single ulcer was found in the gastric body at the body gastroenterostomy/stricture. 3. Gastritis (inflammation) was found in the gastric body. 4. The mucosa of the esophagus appeared normal. There were no complications. Recommendations: PPI daily, UGI series, surgical consult ? revision of gastroenterostomy. Full liquid diet. . Colonoscopy 12/10/2018. Impression: 1. two medium sized angiodysplastic lesions in the proximal ascending colon, ablated. 2. Few diverticulosis was noted in the sigmoid colon. There were no complications. Performed by Dr. Elliot Knight MD 12/10/2018 12:31pm Hospital Course: PCP Dav Padilla [facility] : Carson Lion, Oncology : Josue Reyes HISTORY OF PRESENT ILLNESS: This is a 68 year-old female with a PMH significant for HTN, HLD, left breast cancer s/p lumpectomy 2018 on Anastrazole, chronic thrombocytopenia, gout, nephrolithiasis, h/o perforated ulcer, chronic low back pain with RLE radiculopathy, s/p L4-S1 bilateral laminectomy on 11/05/[address] Lion and opioid dependence, who was sent from [facility]hab ( [facility]) for the evaluation of anemia. As per Rehab,patient has had several H&H's over the last several days and her hemoglobin is been slowly decreasing. [facility]'s hemoglobin [facility] the [facility] was 7.4 however here in the emergency room it was 8.4. Patient denied any chest pain, shortness of breath,palpitations, abdominal pain, N/V/D, rectal bleeding, melena or urinary symptoms. According to the ER note, patient said that she has had some dark stools and that her stool was positive for blood at the Rehab. And also notes an episode of syncope a week ago with weakness/ lethargy. Pt received IV hydration with improvement. Pt states that it was due to Lyrica and now off it. Of note, Pt was recently admitted with 12/01/18 to 11/23/18 with bilateral leg pain and falls and sent to [facility]. ER course was notable for: (1)H/H 8.3/25.4 , PLT 126 (2) Na 138, K 3.2,Bun 11, cre 0.8, Glu 115 (3)CxR: reviewed,No acute lung pathology Hospital course: s/p 1 unit PRBC for hgb 7.2 with appropriate rise in H/H. Patient was evaluated by GI, with planned EGD/colonoscopy on 12/10. Her WBC bernadette 2.6 and emi to 3.0 at the time of discharge. On 12/10 Upper endoscopy and colonoscopy performed with copy of reports given to patient EGD notable for tight stricture with ulcer at the gastroenterostomy site with some retained solid food in stomach Colonoscopy notable for 2 non-bleeding AVMs in the proximal right colon (ablated ) and few sigmoid diverticuli. GI Suspected the gastric stricture with ulceration cause of patient's symptoms including the drop in Hct and the "feeling of fullness" after eating The iron deficiency anemia may be due to a combination of the ulcer and the AVMs pt advised to continue PPI and change diet to soft/ liquid diet. Ms. Arcos will follow up with GI and PCP at [facility] for further management. Plan of Treatment: Dr. Lexa Hargrove (Gastroenterology) Appointment 12/11/2018 9:00am PCP: Dr. Osmin Muro [address] [facility] Dec 21 2018 11:40am Condition: Improved - Instructions Diet, Activity, Other Instructions: 1) Anemia Patient Education What is Anemia?Anemia is a decrease in the number of red blood cells in the blood or a decrease in hemoglobin (the part of thered blood cell which carries oxygen). What causes it?Anemia may be caused by a large amount of blood loss, destruction of the red blood cells from cancer or otherblood diseases, a decrease in the growth of cells in the bone marrow (from chemotherapy or radiationtherapy), or lack of iron/vitamins in your diet. Symptoms Pale skin.Weakness, tiredness, drowsy, or dizzy.Headache, ringing in your ears.Trouble breathing or catching your breath especially with movement.You may feel racing heartbeats, or chest pain (These are danger signals. Call your doctorimmediately for racing heartbeat or chest pain). Treatment: You may need to be given red blood cells into your vein (transfusion) . Medication may be used to stimulate your bones to make more red blood cells.Your doctor will talk to you about what treatment you should receive. Suggestions:Get up slowly from a lying or sitting position.Do not drive or operate machinery if you feel faint.Pace your activities with frequent rest periods. Eat a balanced diet with increased protein and calories.If you notice any new bleeding (black-colored stool, mouth/gum bleeding, blood in urine) or bruising, let your doctor or nurse know right away! 2) Gastritis Treatment of gastritis depends on the specific cause. Acute gastritis caused by nonsteroidal anti-inflammatory drugs or alcohol may be relieved by stopping use of those substances. Medications used to treat gastritis include: Medications that block acid production and promote healing. Proton pump inhibitors reduce acid by blocking the action of the parts of cells that produce acid. These drugs include the prescription and fmvw-gia-svfejuu medications omeprazole (Prilosec), lansoprazole (Prevacid), rabeprazole (Aciphex ), esomeprazole (Nexium), dexlansoprazole (Dexilant) and pantoprazole (Protonix) . Long-term use of proton pump inhibitors, particularly at high doses, may increase your risk of hip, wrist and spine fractures. Ask your doctor whether a calcium supplement may reduce this risk. Medications to reduce acid production. Acid blockers also called histamine (H- 2) blockers reduce the amount of acid released into your digestive tract, which relieves gastritis pain and encourages healing. Available by prescription or [id number]-uhqoqkz, acid blockers include ranitidine, famotidine (Pepcid), cimetidine (Tagamet HB) and nizatidine (Axid AR). Antacids that neutralize stomach acid. Your doctor may include an antacid in your drug regimen. Antacids neutralize existing stomach acid and can provide rapid pain relief. Side effects can include constipation or diarrhea, depending on the main ingredients. 3)Gastric stricture - soft diet with liquids - PPI daily - Follow up wit outpatient GI for possible surgical intervention It is not uncommon to encounter benign strictures of the esophagus and gastric outlet in clinical practice. Any benign process that obstructs the esophagus or stomach, or that induces inflammatory or fibrotic changes in the esophagus or stomach can result in esophageal strictures and gastric outlet obstruction (1-8) . These benign strictures can have a major negative impact on a patient's well- being, and the complications include malnutrition, aspiration, pain and respiratory failure. These strictures are difficult to manage conservatively and they usually require intervention to relieve the dysphagia or to treat the stricture-related complications. (Kailee, J. H., Perry, J. H., & Franck, H. Y. (2010) . Benign strictures of the esophagus and gastric outlet: interventional management. [place] journal of radiology, 11(5), 714818. doi:10.3348/ [email or web address]) Referrals: Luis Muro [Non Staff, Medical] - Disposition: HOME - Home Medications Comprehensive Discharge Medication List: Ambulatory Orders Anastrozole [Arimidex -] 1 mg PO HS 10/31/18 Gabapentin 300 mg PO TID 10/31/18 Losartan Potassium 100 mg PO HS 10/31/18 Metoprolol Succinate [Toprol Xl] 25 mg PO HS 10/31/18 Triamterene/Hydrochlorothiazid [Triamterene-Hctz 37.5-25 mg Cp] 1 tab PO HS Pantoprazole Sodium [Protonix] 40 mg PO DAILY 12/07/18 Potassium Chloride 1 tab PO DAILY 12/07/18 Ferrous Sulfate [Feosol] 325 mg PO BID ud 12/10/18 Losartan Potassium [Cozaar -] 100 mg PO DAILY tablet 12/10/18 Prescription Drug Monitoring Program (I-STOP) results: I-STOP not reviewed Problem List - Problems (1) Gastritis Code(s): K29.70 - GASTRITIS, UNSPECIFIED, WITHOUT BLEEDING (2) Gastric anastomotic stricture Code(s): K92.9 - DISEASE OF DIGESTIVE SYSTEM, UNSPECIFIED; K31.89 - OTHER DISEASES OF STOMACH AND DUODENUM (3) Anemia Code(s): D64.9 - ANEMIA, UNSPECIFIED Qualifiers: Anemia type: unspecified type Qualified Code(s): D64.9 - Anemia, unspecified (4) Syncope Code(s): R55 - SYNCOPE AND COLLAPSE Qualifiers: Encounter type: initial encounter This patient is new to me today: Yes Date on this admission: 12/10/18 Emergency Visit: Yes ED Registration Date: 12/07/18 Care time: The patient presented to the Emergency Department on the above date and was hospitalized for further evaluation of their emergent condition. Critical Care patient: No - Discharge Referral Referred to [facility] Med P.C.: No
--- NOTE | 2018-12-12 17:54 | PATH ---
Surgical Pathology Report Patient Name: KYLEIGH BYRNE Med. Rec. #: [id number] /Age/Gender: 1950 (Age: 68) / F Account: [id number] Location: [facility] Taken: 12/10/2018 Received: 12/10/2018 Reported: 12/12/2018 Physicians: Elliot Knight M.D. Specimen(s) Received GASTRIC BODY Clinical History Anemia Postoperative diagnosis: Gastric ulcer, AVM in right colon, diverticulosis Final Diagnosis GASTRIC BODY, BIOPSY: GASTRIC BODY MUCOSA WITH MILD CHRONIC GASTRITIS. IMMUNOHISTOCHEMICAL STAIN FOR H. PYLORI IS NEGATIVE. Electronically Signed Lary Astudillo M.D. Gross Description Received in formalin, labeled "biopsy gastric body" is a guerrero, irregular portion of soft tissue measuring 0.3 cm. in greatest dimension. The specimen is submitted in toto in one cassette. /12/10/2018 saudi/12/10/2018
== END 2018-12-10 14:51 | disposition home or self-care (01) | DRG 393 ==
LOC: FER 19:47 → FM/S 21:51
PROVIDERS: ADMIT Internal Medicine; ATTEND Nurse Practitioner Family
PROC: 0DJD8ZZ Inspection of Lower Intestinal Tract, Via Natural or Artificial Opening Endoscopic (ICD-10-PCS; 2018-12-10)
PROC: 0D5K8ZZ Destruction of Ascending Colon, Via Natural or Artificial Opening Endoscopic (ICD-10-PCS; 2018-12-10)
PROC: 0DJ08ZZ Inspection of Upper Intestinal Tract, Via Natural or Artificial Opening Endoscopic (ICD-10-PCS; principal; 2018-12-10 12:04)
DX: K91.89 Other postprocedural complications and disorders of digestive system (principal); K55.21 Angiodysplasia of colon with hemorrhage; K25.4 Chronic or unspecified gastric ulcer with hemorrhage; K31.89 Other diseases of stomach and duodenum; I10 Essential (primary) hypertension; D50.9 Iron deficiency anemia, unspecified; E78.5 Hyperlipidemia, unspecified; D69.6 Thrombocytopenia, unspecified; M10.9 Gout, unspecified; M54.5 Low back pain; K57.30 Diverticulosis of large intestine without perforation or abscess without bleeding; K29.70 Gastritis, unspecified, without bleeding; N85.00 Endometrial hyperplasia, unspecified; E87.6 Hypokalemia; R16.1 Splenomegaly, not elsewhere classified; R55 Syncope and collapse; Z87.11 Personal history of peptic ulcer disease; Z85.3 Personal history of malignant neoplasm of breast
CPT/HCPCS: 36415; 36430; 70450-TC; 71045-TC-FY; 80053; 81003; 82272; 82550; 82746; 83010; 83540; 83550; 83615; 83735; 84484; 85025; 85610; 86850; 86900; 86901; 86922; 88305-TC; 88342-TC; 93005; 99284-25; J7030; P9058